=== PATIENT | female | born 1980 | race Caucasian/White ===

== ENCOUNTER 2020-06-02 06:58 | Outpatient (NON) | payer OTHER, SELFPAY ==
[2020-06-02 18:22] LABS: SARS-CoV-2 RNA PCR Negative
== END 2020-06-02 06:59 ==
PROVIDERS: PCP Family Medicine; Visit Provider Family Medicine
DX: Z20.828 Contact with and (suspected) exposure to other viral communicable diseases (principal); R50.9 Fever, unspecified
CPT/HCPCS: 87635; C9803; U0003

== ENCOUNTER → 2020-06-23 17:54 | Outpatient (CLI) | payer OTHER, SELFPAY ==
--- NOTE | ~2020-06-23 | MM_ITS ---
EXAMINATION: MM screening clari BI w hoang HISTORY: Screening TECHNIQUE: Craniocaudal and mediolateral oblique 3-D tomosynthesis images were obtained and synthetic 2-D images were generated. CAD analysis was submitted and interpreted. COMPARISON: Comparison to multiple prior studies sequentially, with oldest reviewed study dated 12/2011. BREAST PARENCHYMAL COMPOSITION: The breasts are heterogeneously dense, which may obscure small masses . FINDINGS: There is no evidence of suspicious mass, calcification, or architectural distortion to sugg est malignancy in either breast. There has been no suspicious interval change. IMPRESSION: 1. No mammographic evidence of malignancy. 2. Recommend routine screening mammography in one year. BI-RADS Category 1: Negative Reviewed, dictated and finalized at location A. NETWORK ENGINEER
== END ==
PROVIDERS: PCP Family Medicine; Visit Provider Obstetrics & Gynecology Gynecology
DX: Z12.31 Encounter for screening mammogram for malignant neoplasm of breast (principal)
CPT/HCPCS: 77063; 77067

== ENCOUNTER 2020-07-04 10:10 | Observation (INO) | payer OTHER, SELFPAY ==
[2020-07-04] VITALS (9 sets, daily range): BP systolic 96–116; BP diastolic 52–77; PULSE 69–99; RESP 15–22; TEMP 36.5–36.7; O2SAT 98–100
--- NOTE | ~2020-07-04 | XR_ITS ---
EXAMINATION: XR abdomen/kub 1V INDICATION: Right ureteral stone TECHNIQUE: Supine views of the abdomen were obtained on 2 radiographs. COMPARISON: CT from today and KUB dated 10/22/2008 FINDINGS: There is a 4 mm stone projecting in the right pelvis at the expected location of the right distal ureteral stone described on CT. Multiple phleboliths are noted in the pelvis. A 3 mm stone is noted in the left kidney lower pole. A linear 2 mm stone is noted in the right kidney lower pole. The bowel gas pattern is normal. The visualized osseous structures are unremarkable. IMPRESSION: 1. 4 mm stone in the expected location of the right distal ureter. 2. Bilateral nephrolithiasis. Reviewed, dictated and finalized at location A. EDITOR
--- NOTE | ~2020-07-04 | XR_ITS ---
EXAMINATION: XR retrograde pyelogram RT EXAM DATE: 07/05/2020 13:56 INDICATION: Cystoscopy, right stone removal. TECHNIQUE: Fluoroscopy used during XR retrograde pyelogram RT performed by Dr. Pete Reyes MD . The DAP for this procedure was [id number] Cine run(s) available for review. FINDINGS: Right ureter was cannulated and injected. There are several filling defects identified, ga s bubbles and/or stones. Moderately dilated proximal and mid ureter and moderate right-sided caliecta sis, hydronephrosis. Correlate with procedure note. IMPRESSION: Fluoroscopy used during XR retrograde pyelogram RT. Reviewed, dictated and finalized at location A. SON ENGINEER
--- NOTE | ~2020-07-04 | CT_ITS ---
EXAMINATION: CT abdomen pelvis wo con DATE: 07/04/2020 10:55 INDICATION: Flank pain TECHNIQUE: Computed tomography (CT) of the abdomen and pelvis was performed without intravenous contr ast. Automated exposure control and iterative reconstruction technique were employed. The dose-length product was 221.64 mGy-cm. COMPARISON: 06/16/2019 FINDINGS: Calcified right middle lobe nodule along with a few scattered splenic calcific lesions consistent wit h old granulomatous disease. Visualized inferior heart is unremarkable. No pericardial or pleural eff usion. Liver, gallbladder, pancreas and bilateral adrenal glands are normal. Bilateral nephrolithiasi s with 3 mm nonobstructing stone at the lower pole of the right kidney and with a couple stones measu ring up to 2-3 mm the lower pole of the right kidney. There is mild right hydroureteronephrosis exten ding to a 4 x 2 x 3 mm distal right ureteral stone located approximately 3.5 cm above the level of th e ureterovesicular junction. No left-sided ureteral stones or hydronephrosis. Decompressed bladder, a nteverted uterus and right adnexa are unremarkable. 2.2 cm mixed fat and soft tissue density left ova laron dermoid. There are few scattered colonic diverticula without adjacent inflammatory change to sug gest diverticulitis. Small bowel and appendix are normal. No free intraperitoneal gas or fluid. No pa thologically enlarged abdominal or pelvic lymphadenopathy. Bones are unremarkable. IMPRESSION: 1. Bilateral nephrolithiasis with obstructing 4 x 2 x 3 mm distal right ureteral stone with mild righ t hydroureteronephrosis. 2. Interval increase in size of a now 2.1 cm left ovarian dermoid. Reviewed, dictated and finalized at location A. MOTIVE UPHOLSTERER IMPRESSION: 1. Bilateral nephrolithiasis with obstructing 4 x 2 x 3 mm distal right uretera l stone with mild right hydroureteronephrosis. 2. Interval increase in size of a now 2.1 cm left ovarian dermoid.
--- NOTE | ~2020-07-04 | XR_ITS ---
XR abdomen/kub 1V 07/05/2020 07:24 Indication: Right ureteral stone evaluation Procedure: KUB Comparison: 07/04/2020 Findings: Stable calcification in the right pelvis, suspicious for distal ureteral stone, unchanged. There are additional pelvic calcifications, likely phleboliths. Bowel gas pattern is nonobstructive. There is a left renal stone. There is a small bone island in the left L4 transverse process. Impression: 1: Stable small right pelvic calcification, likely distal ureteral stone. 2: Left nephrolithiasis. Reviewed, dictated and finalized at location A. OF SHANK CUTTER Impression: 1: Stable small right pelvic calcification, likely distal ureteral stone. 2: Left nephrolithiasis.
[2020-07-04] MEDS: KETOROLAC 30 MG/ML VIAL (*BKC) IV PUSH (10:37)
[2020-07-04] MEDS: ONDANSETRON INJ 4 MG/2 ML VIAL IV PUSH ×4 (10:37→22:04)
[2020-07-04] MEDS: SODIUM CHLORIDE 0.9% IV 1,000 ML 999 ML IV CONT ×2 (10:37→12:31)
[2020-07-04 10:40] LABS: Basophils Percent Auto 0.4 % (0.2-1.2); Eosinophils Absolute Auto 0.1 K/mm3 (0-0.3); Eosinophils Percent Auto 1.5 % (0-4.4); Hematocrit 41.3 % (37.0-47.0); Immature Granulocyte Absolute 0.01 K/mm3 (0.00-0.031); Immature Granulocyte Percent A 0.2 % (0-0.5); Lymphocytes Absolute Auto 1.73 K/mm3 (0.9-3.2); Lymphocytes Percent Auto 32.6 % (18.3-44.2); Mean Corpuscular HGB Conc 33.9 g/dl (32-36); Mean Corpuscular Hemoglobin 31.3 pg (26-34); Mean Corpuscular Volume 92.4 fl (80-100); Mean Platelet Volume 10.7 fl (7.4-10.4); Monocytes Absolute Auto 0.5 K/mm3 (0.1-0.6); Monocytes Percent Auto 8.9 % (2.6-8.5); Neutrophils Percent Auto 56.4 % (45.5-73.1); Platelet Count Result 296 k/mm3 (150-375); Red Blood Count 4.47 M/mm3 (4.2-5.4); Red Cell Distribution Width 11.9 % (11.5-14.5); White Blood Count 5.3 K/mm3 (4.5-10.0)
[2020-07-04 10:46] LABS: Add Urine Microscopic? YES; Appearance Urine Cloudy (Clear); Bacteria Urine Trace /hpf; Bilirubin Urine Negative (Negative); Blood Urine 2+ (Negative); Color Urine Yellow (Yellow); Glucose Urine UA Negative (Negative); Ketones Urine Negative (Negative); Leukocyte Esterase Ur Trace LEU/UL (Negative); Mucus Urine Heavy /lpf; Nitrate Urine Negative (Negative); Protein Urine 1+ mg/dL (Negative); RBC Urine 21-50 /hpf (0-2); Specific Grav Ur 1.024 (1.001-1.035); Squamous Epithelial Cell Urine Many /hpf (Few); Urobilinogen Urine Negative mg/dL (<2.0)
[2020-07-04 10:53] LABS: Alanine Aminotransferase 24 U/L (4-35); Albumin Level 4.3 g/dL (3.5-5.1); Alkaline Phosphatase 50 U/L (38-126); Anion Gap 6 mmol/L (8-16); Aspartate Amino Transferase 31 U/L (14-36); Bilirubin,Total 0.4 mg/dL (0.2-1.3); Blood Urea Nitrogen 11 mg/dL (7-17); Calcium 8.7 mg/dL (8.4-10.2); Carbon Dioxide 29 mmol/L (22-30); Chloride 103 mmol/L (98-107); Estimated CRCL calculation 67 ml/min; Estimated Glomerular Filt Rate > 60; Glucose 121 mg/dL (65-105); Lipase 51 U/L (23-300); Potassium 3.4 mmol/L (3.4-5.0); Sodium 138 mmol/L (137-145)
--- NOTE | 2020-07-04 10:57 | ED.ABDPAIN ---
HPI - Abdominal Pain General Chief Complaint: Abdominal Pain Stated Complaint: right flank pain Time Seen by Provider: 07/04/20 10:19 Source: patient Mode of arrival: ambulatory Limitations: no limitations History of Present Illness HPI narrative: Patient is a 39-year-old female who presents complaining of right flank pain and lower abdominal pain. Patient reports seeing PCP last week and started on Cipro for possible UTI or colitis. Patient reports awaking this a.m. with right flank pain of 8/10. Patient reports a history of kidney stones. Patient denies dysuria, reports frequency. Patient also reports feeling urges for frequent BMs. She denies nausea, vomiting or diarrhea. She denies fever or other complaints. MD elicited complaint: flank pain Related Data Allergies Allergy/AdvReac Type Severity Reaction Status Date / Time amitriptyline Allergy Unknown Nausea Verified 07/04/20 16:49 amoxicillin Allergy Unknown Nausea Verified 07/04/20 16:49 oseltamivir Allergy Unknown Nausea and Verified 07/04/20 16:49 Vomiting Sulfa (Sulfonamide Allergy Unknown destroys Verified 07/04/20 16:49 Antibiotics) wbc's Review of Systems Review of Systems: Narrative: CONSTITUTIONAL: Denies fever, chills, or sweats. EYES: Denies visual changes, redness, or discharge. ENT: Denies rhinorrhea, congestion, sore throat, or otalgia. CARDIOVASCULAR: Denies chest pain, palpitations, or edema. RESPIRATORY: Denies cough or dyspnea. GASTROINTESTINAL: Reports lower abdominal pain, denies nausea, vomiting, or diarrhea. GENITOURINARY: Denies dysuria or hematuria. Reports right flank pain SKIN: Denies rash or itching. MUSCULOSKELETAL: Denies back pain, joint pain, or myalgia. NEUROLOGIC: Denies headache, numbness, dizziness, or weakness. PSYCHIATRIC: Denies anxiety or depression. FORMERLY [facility] Past Medical History Medical History (Updated 07/04/20 @ 15:26 by Mikie Munoz MD) Anxiety GERD (gastroesophageal reflux disease) Recurrent kidney stones UTI (urinary tract infection) Surgical History Surgical History H/O breast surgery H/O inguinal hernia repair H/O: Family History Family History (Updated 07/04/20 @ 16:51 by Yovana Dobbs RN) Father Diabetes mellitus Heart disease Malignant neoplasm of prostate Social History Social History (Updated 07/04/20 @ 11:02 by MADISON Ramos) Smoking packs per day: 1 Smoking cigarettes per day: 20.0 Years smoked: 6 Smoking pack-years: 6.00 Smoking status: Former smoker Tobacco type: cigarettes Alcohol intake: never Substance use: never Substance use type: does not use Living arrangements: with family Gender identity (if verbalized by the patient): Female Spiritual care concerns: No Exam Narrative: Exam Narrative: GENERAL: Well-appearing, well-nourished, and in no acute distress. HEAD: Normocephalic, atraumatic. EYES: No redness or drainage. ENT: Mucous membranes pink and moist. CHEST: No respiratory distress. HEART: Regular rate and rhythm. GI: Soft, nontender without rebound, or guarding. No distention. MUSCULOSKELETAL: No bony tenderness. EXTREMITIES: Normal range of motion. SKIN: Warm, dry, no rash. NEURO: No focal deficits. Alert and oriented x3. Gait steady. PSYCH: Normal affect. No signs of depression or anxiety. Course Reevaluation(s) Reevaluation #1: Discussed patient with Dr. Munoz. Patient unable to manage pain at this time. Patient will be admitted for pain control and possible further intervention. Dr. Munoz aware and has seen patient in ED at this time. Vital Signs Vital signs: Vital Signs Temperature 36.6 C 07/04/20 10:16 Pulse Rate 96 07/04/20 10:16 Respiratory Rate 20 07/04/20 10:16 Blood Pressure 104/62 07/04/20 10:16 Pulse Oximetry 98 07/04/20 10:16 Temperature 36.5 C 07/04/20 17:00 Pulse Rate 69 07/04/20 17:00 Respiratory
[2020-07-04] MEDS: MORPHINE SULFATE (*CRX) 2 MG/ML INJ IV PUSH ×4 (13:15→22:07)
--- NOTE | 2020-07-04 15:21 | WPDURCON ---
Assessment and Plan Additional Plan Right distal ureter stone. I reviewed her scans. There is right hydronephrosis. The ureter is difficult to follow. She has no nausea, emesis, fevers, or chills. There is no evidence of infection. She has been reluctant to take pain medications. We discussed a pain plan. We will have her use tylenol every 6 hours as well as toradol. She will have oral narcotic pain medication as initial breakthrough pain management. She will have IV pain medication as the breakthrough pain medication. She has passed her prior stones spontaneously. We will also add tamsulosin. She will be kept NPO after midnight in case surgical intervention is needed. We discussed the intervention currently would be ureteroscopy with laser lithotripsy and stent placement. We discussed indications for placing a stent only. We discussed the option of ESWL, but she is not currently a candidate due to use of Toradol. We will obtain a KUB to check for stone location and assist with monitoring of stone passage if the pain improves bu the stone is not caught. CT scan FINDINGS per radiology report: Calcified right middle lobe nodule along with a few scattered splenic calcific lesions consistent with old granulomatous disease. Visualized inferior heart is unremarkable. No pericardial or pleural effusion. Liver, gallbladder, pancreas and bilateral adrenal glands are normal. Bilateral nephrolithiasis with 3 mm nonobstructing stone at the lower pole of the right kidney and with a couple stones measuring up to 2-3 mm the lower pole of the right kidney. There is mild right hydroureteronephrosis extending to a 4 x 2 x 3 mm distal right ureteral stone located approximately 3.5 cm above the level of the ureterovesicular junction. No left-sided ureteral stones or hydronephrosis. Decompressed bladder, anteverted uterus and right adnexa are unremarkable. 2.2 cm mixed fat and soft tissue density left ovarian dermoid. There are few scattered colonic diverticula without adjacent inflammatory change to suggest diverticulitis. Small bowel and appendix are normal. No free intraperitoneal gas or fluid. No pathologically enlarged abdominal or pelvic lymphadenopathy. Bones are unremarkable. Urology Consult Note HPI Date Seen: 07/04/20 Primary Care Provider: Conrad Jeffers MD Consult Narrative Narrative: Tri Noble is a 39 year old female with a right ureteral stone. Pain started last week. She was treated for a possible UTI, but her UC was normal per her report. The pain worsened, so she came to the ER. Her pain has not been controlled with Toradol and narcotic pain medications. She states her pain is bilateral with the pain worse on the right. It is abdominal currently, but was more flank pain earlier in the day. She has passed stones before, always on the left side. This is her first right sided stone. Review of Systems Review of Systems: All systems reviewed & are unremarkable except as noted in HPI and below PMFSH Past Medical History Medical History (Updated 07/04/20 @ 15:26 by Mikie Munoz MD) Anxiety GERD (gastroesophageal reflux disease) Recurrent kidney stones UTI (urinary tract infection) Surgical History Surgical History H/O breast surgery H/O inguinal hernia repair H/O: Family History Family History (Updated 07/04/20 @ 11:02 by MADISON Ramos) Other Cancer Diabetes mellitus Heart disease Social History Social History (Updated 07/04/20 @ 11:02 by MADISON Ramos) Smoking status: Former smoker Tobacco type: cigarettes Alcohol intake: never Substance use: never Living arrangements: with family Gender identity (if verbalized by the patient): Female Meds Home Medications and Allergies Home Medications Medication Instructions Recorded Confirmed Type ciprofloxacin HCl 500 mg tablet 500 mg PO Q12H #14 tablet 06/30/20 06/30/20 Rx hydrocodo
--- NOTE | 2020-07-04 16:43 | ADMGEN ---
This patient, Tri Noble, was admitted to Medical Room 258-01. Patient/family oriented to hospital policies and general routines including ID bracelet, bed and alarms, visiting hours, pain management, procedures, bathroom and other care routines, personal items, smoking policy, room service/diet, and visiting hours. Information on how to activate the Rapid Response Team has been discussed. Patient/Family are encouraged to report perceived risks to care and to ask questions if they do not understand what they are told or what they should do.
[2020-07-04] MEDS: SODIUM CHLORIDE 0.9% IV 1,000 ML 125 ML IV CONT (17:16)
[2020-07-04] MEDS: KETOROLAC 15 MG/ML VIAL (*BKC) IV PUSH (17:50)
[2020-07-04] MEDS: DEXTROSE 5%/LACTATED RINGERS 1,000 ML 75 ML IV CONT (17:53)
--- NOTE | 2020-07-04 18:02 | PC.NURSE ---
Clarified orders with Dr. Munoz via telephone. Per Dr. Munoz, current orders should be for tylenol PO 1G Q6H scheduled, Toradol 15mg IVP Q6H scheduled. Patient stating that when we start/give her IVF, it increases her pain to 10/10. Dr. Munoz notified and I received orders to decrease her IVF rate to 75 mls/hr. Patient crying at the bedside, 10/10 pain and nausea. Administered the ordered Q6H dose of Toradol and will monitor. Patient guarded and reluctant to try any stronger pain medications at this time.
[2020-07-04] MEDS: oxyCODONE HCL (*CRX) 5 MG TAB IR PO (18:54)
[2020-07-04] MEDS: ACETAMINOPHEN 500 MG TABLET 1000 MG PO (20:43)
[2020-07-05] MEDS: KETOROLAC 15 MG/ML VIAL (*BKC) IV PUSH (00:21)
[2020-07-05 06:00] VITALS: BP 101/58; PULSE 65; RESP 16; TEMP 36.8; O2SAT 100
[2020-07-05] MEDS: ACETAMINOPHEN 500 MG TABLET 1000 MG PO ×2 (06:19→11:34)
[2020-07-05] MEDS: DEXTROSE 5%/LACTATED RINGERS 1,000 ML 75 ML IV CONT (06:23)
--- NOTE | 2020-07-05 07:06 | WPDUROPN2 ---
Progress Note: A&P Assessment and Plan (1) Right ureteral stone: Code(s): N20.1 - Calculus of ureter Status: Acute Assessment and Plan: KUB for stone position. If stone hasn't passed, ureteroscopy with right ureteral stone extraction today. Subjective Subjective Date/Time Seen: 07/05/20 07:06 Sudden relief of right flank pain ~0100, now with minimal discomfort. Review of Systems Cardiovascular: Cardiovascular: Denies chest pain, Denies lightheadedness, Denies palpitations and Denies dyspnea Respiratory: Respiratory: Denies dyspnea Gastrointestinal: Gastrointestinal: Denies diarrhea, Denies nausea and Denies vomiting Genitourinary: Genitourinary: Denies hematuria and Denies dysuria Endocrine: Endocrine: Denies palpitations Exam Const: General: no acute distress Resp: Effort & Inspection: normal respiratory effort GI: Inspection: non-distended GI Palp: No abdominal tenderness and No Guarding due to palpation present (GI) Auscultation: normal bowel sounds Objective Data Vital Signs Vital Signs: Vital Signs - 24 hr 07/04/20 10:16 07/04/20 11:23 07/04/20 13:15 Temperature 97.8 F Pulse Rate 96 75 99 Respiratory Rate 20 15 22 H Blood Pressure 104/62 100/54 L 116/77 Pulse Oximetry 98 100 100 07/04/20 14:05 07/04/20 15:05 07/04/20 16:28 Temperature Pulse Rate 87 72 82 Respiratory Rate 17 19 21 H Blood Pressure 107/59 L 96/52 L 98/63 L Pulse Oximetry 99 99 100 07/04/20 17:00 07/04/20 20:00 07/04/20 22:00 Temperature 97.7 F 98.0 F Pulse Rate 69 69 74 Respiratory Rate 18 18 18 Blood Pressure 101/57 L 108/63 Pulse Oximetry 100 100 100 07/05/20 06:00 Temperature 98.3 F Pulse Rate 65 Respiratory Rate 16 Blood Pressure 101/58 L Pulse Oximetry 100 Intake/Output Intake/Output: Intake & Output 07/02/20 07/03/20 07/04/20 07/05/20 23:59 23:59 23:59 23:59 Intake Total 2120 1450 Output Total 1100 Balance 2120 350 Meds/Results Medications: Active Medications Generic Name Dose Route Start Last Admin Trade Name Freq PRN Reason Stop Dose Admin Acetaminophen 1,000 mg 07/04/20 21:00 07/05/20 06:19 Acetaminophen 500 Mg Tablet PO 1,000 mg Q6H BEATRICE Administration Docusate Sodium 100 mg 07/04/20 17:00 07/04/20 17:17 Docusate Sodium 100 Mg Capsule PO Not Given BID BEATRICE Dextrose/Lactated Ringer's 1,000 mls @ 75 mls/hr 07/04/20 15:40 07/05/20 06:23 Dextrose 5%/Lactated Ringers IV CONT 75 mls/hr .[id number] BEATRICE Administration Ketorolac Tromethamine 15 mg 07/04/20 18:00 07/05/20 06:19 Ketorolac 15 Mg/Ml Vial (*Bkc) IV PUSH Not Given Q6HR [facility] Morphine Sulfate 2 mg 07/04/20 15:38 07/04/20 22:07 Morphine Sulfate (*Crx) 2 Mg/Ml Inj IV PUSH 2 mg Q2H PRN Administration Pain Rated 7-10 Naloxone HCl 0.1 mg 07/04/20 15:38 Naloxone Hcl 0.4 Mg/Ml Vial IV PUSH Q2M PRN Opiate Reversal Ondansetron HCl 4 mg 07/04/20 17:38 07/04/20 22:04 Ondansetron Inj 4 Mg/2 Ml Vial IV PUSH 4 mg Q4HR PRN Administration Nausea And Vomiting Oxycodone HCl 5 mg 07/04/20 15:43 07/04/20 18:54 Oxycodone Hcl (*Crx) 5 Mg Tab Ir PO 5 mg Q4H PRN Administration Pain Rated 7-10 Radiology Results: ITS Impressions Abdomen/Pelvis CT 07/04/20 11:02 IMPRESSION: 1. Bilateral nephrolithiasis with obstructing 4 x 2 x 3 mm distal right ureteral stone with mild right hydroureteronephrosis. 2. Interval increase in size of a now 2.1 cm left ovarian dermoid. Abdomen X-Ray 07/04/20 16:10 IMPRESSION: 1. 4 mm stone in the expected location of the right distal ureter. 2. Bilateral nephrolithiasis. Labs Labs: Laboratory Results - last 24 hr 07/04/20 07/04/20 07/04/20 10:24 10:25 10:25 WBC 5.3 RBC 4.47 Hgb 14.0 Hct 41.3 MCV 92.4 MCH 31.3 MCHC 33.9 RDW 11.9 Plt Count 296 MPV 10.7 H Immature Gran % (Auto) 0.2 Neut % (Auto) 56.4 Lymph
--- NOTE | 2020-07-05 07:35 | WPDUROPN2 ---
Progress Note: A&P Assessment and Plan (1) Right ureteral stone: Code(s): N20.1 - Calculus of ureter Status: Acute (2) Hydronephrosis: Code(s): N13.30 - Unspecified hydronephrosis Status: Acute Additional Plan plan for Right ureteroscopy, stone extraction, possible stent Subjective Subjective Date/Time Seen: 07/05/20 07:35 was in significant pain last night. Stone has not moved on KUB. No COVID symptoms Exam Const: General: cooperative and healthy appearing HENMT: Head: normal to inspection Eyes: General: appearance normal, both eyes and all related structures Neck: Neck: normal visual inspection Resp: Effort & Inspection: normal respiratory effort and able to speak in complete sentences Back/Spine/Pelvis: Back: CVA tenderness (right) Skin: General skin exam: normal color Neuro: General: patient oriented x3 Objective Data Vital Signs Vital Signs: Vital Signs - 24 hr 07/04/20 10:16 07/04/20 11:23 07/04/20 13:15 Temperature 97.8 F Pulse Rate 96 75 99 Respiratory Rate 20 15 22 H Blood Pressure 104/62 100/54 L 116/77 Pulse Oximetry 98 100 100 07/04/20 14:05 07/04/20 15:05 07/04/20 16:28 Temperature Pulse Rate 87 72 82 Respiratory Rate 17 19 21 H Blood Pressure 107/59 L 96/52 L 98/63 L Pulse Oximetry 99 99 100 07/04/20 17:00 07/04/20 20:00 07/04/20 22:00 Temperature 97.7 F 98.0 F Pulse Rate 69 69 74 Respiratory Rate 18 18 18 Blood Pressure 101/57 L 108/63 Pulse Oximetry 100 100 100 07/05/20 06:00 Temperature 98.3 F Pulse Rate 65 Respiratory Rate 16 Blood Pressure 101/58 L Pulse Oximetry 100 Intake/Output Intake/Output: Intake & Output 07/02/20 07/03/20 07/04/20 07/05/20 23:59 23:59 23:59 23:59 Intake Total 2120 1450 Output Total 1100 Balance 2120 350 Meds/Results Medications: Active Medications Generic Name Dose Route Start Last Admin Trade Name Freq PRN Reason Stop Dose Admin Acetaminophen 1,000 mg 07/04/20 21:00 01/04/21 06:19 Acetaminophen 500 Mg Tablet PO 1,000 mg Q6H BEATRICE Administration Docusate Sodium 100 mg 07/04/20 17:00 07/04/20 17:17 Docusate Sodium 100 Mg Capsule PO Not Given BID BEATRICE Dextrose/Lactated Ringer's 1,000 mls @ 75 mls/hr 07/04/20 15:40 07/05/20 06:23 Dextrose 5%/Lactated Ringers IV CONT 75 mls/hr .[id number] BEATRICE Administration Ketorolac Tromethamine 15 mg 07/04/20 18:00 07/05/20 06:19 Ketorolac 15 Mg/Ml Vial (*Bkc) IV PUSH Not Given Q6HR BEATRICE Morphine Sulfate 2 mg 07/04/20 15:38 07/04/20 22:07 Morphine Sulfate (*Crx) 2 Mg/Ml Inj IV PUSH 2 mg Q2H PRN Administration Pain Rated 7-10 Naloxone HCl 0.1 mg 07/04/20 15:38 Naloxone Hcl 0.4 Mg/Ml Vial IV PUSH Q2M PRN Opiate Reversal Ondansetron HCl 4 mg 07/04/20 17:38 07/04/20 22:04 Ondansetron Inj 4 Mg/2 Ml Vial IV PUSH 4 mg Q4HR PRN Administration Nausea And Vomiting Oxycodone HCl 5 mg 07/04/20 15:43 07/04/20 18:54 Oxycodone Hcl (*Crx) 5 Mg Tab Ir PO 5 mg Q4H PRN Administration Pain Rated 7-10 Radiology Results: ITS Impressions Abdomen/Pelvis CT 07/04/20 11:02 IMPRESSION: 1. Bilateral nephrolithiasis with obstructing 4 x 2 x 3 mm distal right ureteral stone with mild right hydroureteronephrosis. 2. Interval increase in size of a now 2.1 cm left ovarian dermoid. Labs Labs: Laboratory Results - last 24 hr 07/04/20 07/04/20 07/04/20 10:24 10:25 10:25 WBC 5.3 RBC 4.47 Hgb 14.0 Hct 41.3 MCV 92.4 MCH 31.3 MCHC 33.9 RDW 11.9 Plt Count 296 MPV 10.7 H Immature Gran % (Auto) 0.2 Neut % (Auto) 56.4 Lymph % (Auto) 32.6 [place] % (Auto) 8.9 H Eos % (Auto) 1.5 Baso % (Auto) 0.4 Lymph # (Auto) 1.73 [place] # (Auto) 0.5 Eos # (Auto) 0.1 Baso # (Auto) 0.0 Abs Immat Gran (auto) 0.01 Absolute Neuts (auto) 3.0 Absolute Nucleated RBC 0.0 Nucleated RBC % 0.0 Sodium
[2020-07-05 09:32] LABS: Hematocrit 32.2 % (37.0-47.0); Hemoglobin 10.8 g/dL (12.0-15.0)
[2020-07-05 09:48] LABS: Anion Gap 4 mmol/L (8-16); Blood Urea Nitrogen 12 mg/dL (7-17); Calcium 8.4 mg/dL (8.4-10.2); Carbon Dioxide 29 mmol/L (22-30); Chloride 107 mmol/L (98-107); Estimated CRCL calculation 54 ml/min; Estimated Glomerular Filt Rate > 60; Glucose 98 mg/dL (65-105); Potassium 4.1 mmol/L (3.4-5.0); Sodium 140 mmol/L (137-145)
[2020-07-05 12:07] VITALS: BP 102/61; PULSE 69; RESP 16; TEMP 37; O2SAT 100
--- NOTE | 2020-07-05 12:42 | WPDANESEPPF ---
Anes - Initial Pre Proc Eval Procedure: Operation Date: 07/05/20 14:30 Proposed Procedures p CYSTOSCOPY,RIGHT URETEROSCOPY,STONE EXTRACTION - Pete Reyes MD Date/Time: 07/05/20 12:42 Surgeon: Mikie Munoz MD Pre Op Diagnosis: Right ureter stone Patient Data Age: 39 Gender: F Height: 5 ft 3 in Weight: 59 kg Last Vital Signs Temp 98.6 F 07/05/20 12:07 Pulse 69 07/05/20 12:07 Resp 16 07/05/20 12:07 BP 102/61 07/05/20 12:07 Pulse Ox 100 07/05/20 12:07 Allergies Allergy/AdvReac Type Severity Reaction Status Date / Time amitriptyline Allergy Unknown Nausea Verified 07/04/20 16:49 amoxicillin Allergy Unknown Nausea Verified 07/04/20 16:49 oseltamivir Allergy Unknown Nausea and Verified 07/04/20 16:49 Vomiting Sulfa (Sulfonamide Allergy Unknown destroys Verified 07/04/20 16:49 Antibiotics) wbc's Home Medications Medication Instructions Recorded Confirmed Type ciprofloxacin HCl 500 mg tablet 500 mg PO Q12H #14 tablet 06/30/20 07/04/20 Rx hydrocodone-acetaminophen [[place]] 1 tablet PO Q6H PRN #10 tablet 07/04/20 Rx ibuprofen 800 mg PO TID PRN #20 tablet 07/04/20 Rx ondansetron HCl 4 mg PO Q6H PRN #20 tablet 07/04/20 Rx Laboratory Tests 07/05/20 07/05/20 09:22 09:22 Hgb 10.8 g/dL L D g/dL (12.0-15.0) Hct 32.2 % L % (37.0-47.0) Sodium 140 mmol/L mmol/L (137-145) Potassium 4.1 mmol/L mmol/L (3.4-5.0) Chloride 107 mmol/L mmol/L (98-107) Carbon Dioxide 29 mmol/L mmol/L (22-30) Anion Gap 4 mmol/L L mmol/L (8-16) BUN 12 mg/dL mg/dL (7-17) Creatinine 1.00 mg/dL mg/dL (0.7-1.0) Estim Creat Clear Calc 54 ml/min ml/min Estimated GFR > 60 (59 - ) Glucose 98 mg/dL mg/dL (65-105) Calcium 8.4 mg/dL mg/dL (8.4-10.2) Patient hx anesthesia problems: none Family hx anesthesia problems: none [facility] Past Medical History Medical History (Updated 07/05/20 @ 07:37 by Pete Reyes MD) Anxiety GERD (gastroesophageal reflux disease) Recurrent kidney stones UTI (urinary tract infection) Surgical History Surgical History H/O breast surgery H/O inguinal hernia repair H/O: Family History Family History (Updated 07/04/20 @ 16:51 by Yovana Dobbs RN) Father Diabetes mellitus Heart disease Malignant neoplasm of prostate Social History Social History (Updated 07/04/20 @ 11:02 by MADISON aRmos) Smoking packs per day: 1 Smoking cigarettes per day: 20.0 Years smoked: 6 Smoking pack-years: 6.00 Smoking status: Former smoker Tobacco type: cigarettes Alcohol intake: never Substance use: never Substance use type: does not use Living arrangements: with family Gender identity (if verbalized by the patient): Female Spiritual care concerns: No Anes - Eval Final PreProcedure Day of Procedure 07/05/20 12:42 Patient weight: normal Heart: regular rate and rhythm Lungs: clear to auscultation Airway: Mallampati scale class II Neurological: alert and oriented Last oral intake: >/= 8 hours ASA classification: II Emergent: no Anesthetic plan: proceed Anesthesia type and monitoring: general LMA and standard monitoring Informed Consent: The patient's anesthetic plan and its attendant risks and benefits were discussed with the patient/family/POA. Questions were solicited and answers provided to the satisfaction of the patient/family/POA.
[2020-07-05] MEDS: LACTATED RINGERS 1,000 ML 30 ML IV CONT (12:45)
[2020-07-05] MEDS: levoFLOXacin 250 MG/D5W 50 ML 250 MG/50 ML BAG 50 MG IVPB (13:30)
[2020-07-05] MEDS: LIDOCAINE HCL 2% GEL UROJET 10 ML PKG MUCOUS MEM (13:36)
--- NOTE | 2020-07-05 13:58 | PM.PROC ---
Procedure Note - Detailed Date of procedure: 07/05/20 Pre-op diagnosis: Right ureter stone Post-op diagnosis: same Procedure performed: Cystoscopy, right retrograde pyelogram, right ureteroscopy with stone extraction Description of procedure: She was correctly identified and informed consent obtained. She is probably operating room. She was given general anesthesia. She was prepped and draped in the dorsal lithotomy position. She was given appropriate perioperative antibiotics. Time-out performed. I performed cystoscopy. The bladder is examined and was normal. I did a gentle retrograde pyelogram on the right. It outlined the distal ureteral stone with proximal hydronephrosis. I dilated the ureter with the 8/10 dilator. I performed ureteroscopy. The stone was encountered. I grasped the stone and removed it intact. I re-examined the ureter. There is no additional stones. There was minimal to no trauma to the ureter. I elected to not leave ureteral stent. She is awakened and transferred to the PACU in stable condition. Anesthesia: GLMA Surgeon: Pete Reyes MD Estimated blood loss (mL): 0 Drains: No Packing: No Pathology: yes (Stone) Complications: No immediate complications Condition: stable Disposition: PACU
[2020-07-05 14:03] VITALS: BP 96/59; PULSE 75; RESP 13; TEMP 36.2; O2SAT 95
--- NOTE | 2020-07-05 14:04 | P.DS_ITS ---
DS: Admitting Diagnosis Admitting Diagnosis Admitting Diagnosis: Right ureteral stone DS: Discharge Diagnosis Discharge Diagnosis (1) Right ureteral stone: Code(s): N20.1 - Calculus of ureter Status: Acute DS: Summary Hospital Course Hospital Course: She was admitted to the hospital ureteral stone. She failed a trial of conservative stone passage. She had significant pain overnight. The next day she was taken to the operating room for definitive stone management and stone removal via ureteroscopy Time Spent with Patient Time attestation: Total time spent providing and/or coordinating discharge se rvices: 15 minutes She was admitted with a ureteral stone. She had significant pain overnight and failed a trial of conservative stone passage. The next day she was taken the operating room for definitive stone surgery. We performed ureteroscopy and extracted the stone intact. No stent was left. Should be discharged home in stable condition Exam Const: General: cooperative and healthy appearing HENMT: Ears: hearing grossly normal bilaterally Eyes: General: appearance normal, both eyes and all related structures Resp: Effort & Inspection: normal respiratory effort and able to speak in complete sentences Skin: General skin exam: normal color Neuro: General: oriented to person, oriented to place and oriented to time DS: Data Data Completed and Pending Pending studies at discharge: Pending at discharge 07/05/20 13:51 Surgical [PTH] Routine Labs on day of discharge: Labs from last 24 hours 07/05/20 07/05/20 09:22 09:22 Hgb 10.8 L D Hct 32.2 L Sodium 140 Potassium 4.1 Chloride 107 Carbon Dioxide 29 Anion Gap 4 L BUN 12 Creatinine 1.00 Estim Creat Clear Calc 54 Estimated GFR > 60 Glucose 98 Calcium 8.4 Discharge Plan Discharge Attending physician on discharge: Mikie Munoz Discharging Clinician: Pete Reyes Anticipated Discharge Date/Time: 07/05/20 14:01 Patient Disposition: Home, Self-Care Activity: may shower and unlimited Diet: as tolerated Patient Instructions: Antibiotic Form Stand Alone Forms: General Discharge Information Follow-up/Referrals: Conrad Jeffers MD [Primary Care Provider] - (f/u Dr Pete Reyes in 3 months [phone]) Discharge Medications: New ondansetron HCl 4 mg tablet 4 mg PO Q6H PRN (Reason: nausea and vomiting) Qty: 20 RF: 0 hydrocodone-acetaminophen [[place]] 5-325 mg tablet 1 tablet PO Q6H PRN (Reason: pain) Qty: 10 RF: 0 hydrocodone-acetaminophen [[place]] 5-325 mg tablet 1 tablet PO Q4H PRN (Reason: pain) Qty: 20 RF: 0 ciprofloxacin HCl 500 mg tablet 500 mg PO Q12H Qty: 6 RF: 0 Continued ciprofloxacin HCl [Cipro] 500 mg tablet 500 mg PO Q12H Qty: 14 RF: 0 Date of admission: 07/04/20 14:39 Primary Care Provider: Conrad Jeffers Admitting Provider: Mikie Munoz Attending physician on admission: Mikie Munoz Condition: Stable
[2020-07-05 14:15] VITALS: BP 100/69; PULSE 68; RESP 13; O2SAT 100
[2020-07-05 14:30] VITALS: BP 101/68; PULSE 67; RESP 15; O2SAT 95
[2020-07-05 14:43] VITALS: BP 100/73; PULSE 68; RESP 15; O2SAT 95
== END 2020-07-05 15:15 | disposition home or self-care (01) ==
LOC: ANHED 14:21 → ANH2MED 07-05 07:37
PROVIDERS: Emergency Medicine; Admitting Provider Urology; Emergency Provider Nurse Practitioner; PCP Family Medicine; Visit Provider Urology
PROC: (CPT 52352; principal; 2020-07-05 14:30)
DX: N13.2 Hydronephrosis with renal and ureteral calculous obstruction (principal); K21.9 Gastro-esophageal reflux disease without esophagitis; F41.9 Anxiety disorder, unspecified; Z87.891 Personal history of nicotine dependence
CPT/HCPCS: 52352; 36415; 74018; 74176; 74420; 80048; 80053; 81001; 81025; 82365; 83690; 85014; 85018; 85025; 87086; 88300; 96361; 96374; 96375; 96376; 99285; A9270; C1769; G0378; J0131; J1100; J1885; J1956; J2250; J2270; J2405; J2704; J3010; J7030; J7120; J7121

== ENCOUNTER → 2020-11-10 08:54 | Outpatient (CLI) | payer OTHER, SELFPAY ==
--- NOTE | ~2020-11-10 | MMUS_ITS ---
EXAMINATION: MM diagnostic clari RT w hoang, US breast RT limited HISTORY: Deformity and loss of soft tissue density in the upper inner quadrant of the right breast TECHNIQUE: Craniocaudal, mediolateral, and mediolateral oblique 3-D tomosynthesis images of the right breast were performed and synthetic 2-D images were generated. CAD analysis was submitted and interp reted. High resolution limited right breast ultrasound was performed. COMPARISON: 06/03/2020, 06/06/2019, 06/06/2012 BREAST PARENCHYMAL COMPOSITION: There are scattered areas of fibroglandular density. FINDINGS: MAMMOGRAPHIC FINDINGS: There is no evidence of suspicious mass, calcification, or architectural distortion right malignancy . There has been no suspicious interval change. No mammographic correlate is identified for the repor francisco javier deformity and loss of breast tissue density. ULTRASOUND: There is no evidence of focal abnormal solid or cystic mass in the vicinity of the right breast defor mity and loss of tissue density. IMPRESSION: 1. No specific mammographic or sonographic correlate is identified for the right breast deformity and loss of tissue density. Further evaluation at this time should be based on clinical assessment. Cont inued follow-up physical examination is recommended. 2. Routine annual screening mammography is recommended. BI-RADS Category 1: Negative Reviewed, dictated and finalized at location A. IMPRESSION: 1. No specific mammographic or sonographic correlate is identified for the righ t breast deformity and loss of tissue density. Further evaluation at this time should be based on clinical assessment. Continued follow-up physical examinatio n is recommended. 2. Routine annual screening mammography is recommended. BI-RADS Category 1: Negative
== END ==
PROVIDERS: Visit Provider Nurse Practitioner
DX: N63.15 Unspecified lump in the right breast, overlapping quadrants (principal)
CPT/HCPCS: 76642; 77061; 77065; G0279

== ENCOUNTER → 2021-08-25 10:20 | Outpatient (CLI) | payer OTHER, SELFPAY ==
--- NOTE | ~2021-08-25 | MM_ITS ---
EXAMINATION: MM screening clari BI w hoang HISTORY: Screening mammogram TECHNIQUE: Craniocaudal and mediolateral oblique 3-D tomosynthesis images were obtained and synthetic 2-D images were generated. CAD analysis was submitted and interpreted. COMPARISON: 11/10/2020 diagnostic right mammogram and limited right breast ultrasound examination 06/23/2020, 06/06/2019 bilateral screening mammogram examinations BREAST PARENCHYMAL COMPOSITION: There are scattered areas of fibroglandular density. No other urinary FINDINGS: There is a 5.6 x 9 mm opacity in the anterior upper mid right breast; diagnostic right mamm ogram and right breast ultrasound examination are recommended. There is no evidence of suspicious mass, calcification, or architectural distortion to suggest malign camille in either breast. There has been no other suspicious interval change. IMPRESSION: 1. 5.6 x 9 mm opacity in the upper mid anterior right breast 2. Recommend routine screening mammography in one year. BI-RADS Category 0: Incomplete: Needs additional imaging evaluation. Reviewed, dictated and finalized at location A. SLIDE OPERATOR
== END ==
PROVIDERS: Visit Provider Obstetrics & Gynecology Gynecology
DX: Z12.31 Encounter for screening mammogram for malignant neoplasm of breast (principal); R92.8 Other abnormal and inconclusive findings on diagnostic imaging of breast
CPT/HCPCS: 77063; 77067

== ENCOUNTER → 2021-09-07 08:06 | Outpatient (CLI) | payer OTHER, SELFPAY ==
--- NOTE | ~2021-09-07 | MMUS_ITS ---
EXAMINATION: MM diagnostic clari RT w hoang, US breast RT complete HISTORY: Follow-up right breast asymmetry TECHNIQUE: Additional 3-D tomosynthesis images of the right breast were performed and synthetic 2-D i mages were generated. CAD analysis was submitted and interpreted. High resolution complete right hieu st ultrasound was performed. COMPARISON: Comparison to multiple prior studies sequentially, with oldest reviewed study dated 12/2011. BREAST PARENCHYMAL COMPOSITION: The breasts are heterogenously dense, which may obscure small masses FINDINGS: MAMMOGRAPHIC FINDINGS: There are no suspicious masses, calcifications or architectural distortion in the right breast. ULTRASOUND: Complete US of all 4 quadrants of the right breast and retroareolar region was reviewed. Multiple sma ll simple and complicated cysts. At 10:00, 7.5 cm from the nipple there is a intramammary lymph node measuring 7 mm. No suspicious masses to suggest malignancy. IMPRESSION: 1. No evidence for malignancy in the right breast. 2. Routine yearly screening mammogram and regular clinical breast examination are recommended. BI-RADS Category 2: Benign finding(s). Reviewed, dictated and finalized at location A. RAM DIRECTOR/MORNING SHOW HOST IMPRESSION: 1. No evidence for malignancy in the right breast. 2. Routine yearly screening mammogram and regular clinical breast examination a re recommended. BI-RADS Category 2: Benign finding(s).
== END ==
PROVIDERS: Visit Provider Obstetrics & Gynecology Gynecology
DX: R92.8 Other abnormal and inconclusive findings on diagnostic imaging of breast (principal)
CPT/HCPCS: 76641; 77061; 77065; G0279

== ENCOUNTER → 2022-07-13 09:22 | Outpatient (CLI) | payer OTHER, SELFPAY ==
--- NOTE | ~2022-07-13 | US_ITS ---
EXAMINATION: US retroperitoneal comp DATE: 07/13/2022 09:41 INDICATION: Bilateral kidney stones TECHNIQUE: Multiple grayscale and Doppler ultrasound images of the kidneys were obtained. COMPARISON: 07/11/2019 FINDINGS: The right kidney measures 11.3 x 5.1 x 6.1 cm. The left kidney measures 10.8 x 5.5 x 4.8 cm . The kidneys demonstrate normal parenchymal echogenicity. No urolithiasis is identified. There is no hydronephrosis. The bladder is normal. Incidental note is made of an 8.2 x 4.5 x 6.9 cm right adnexa l cyst. IMPRESSION: 1. Normal kidneys without hydronephrosis. 2. Incidentally noted right adnexal cyst measuring up to 8.2 cm. Dedicated pelvic ultrasound is recom mended. Reviewed, dictated and finalized at location L. ERIOLOGIST PHARMACEUTICAL IMPRESSION: 1. Normal kidneys without hydronephrosis. 2. Incidentally noted right adnexal cyst measuring up to 8.2 cm. Dedicated pelv ic ultrasound is recommended.
--- NOTE | ~2022-07-13 | XR_ITS ---
EXAMINATION: XR abdomen/kub 1V INDICATION: Bilateral kidney stones TECHNIQUE: Supine view of the abdomen is obtained. COMPARISON: 07/05/2020 FINDINGS: There is a punctate 1 mm stone of the left mid kidney. No additional urolithiasis is identi fied. There are phleboliths of the pelvis. There is a chronic density projecting at the tip of the le ft L4 transverse process. The bowel gas pattern is normal. There is a moderate volume of colonic stoo l. IMPRESSION: 1. 1 mm stone of the left mid kidney. Reviewed, dictated and finalized at location L. ERCIAL AIRLINE PILOT
== END ==
PROVIDERS: PCP Urology; Visit Provider Urology
DX: N20.0 Calculus of kidney (principal)
CPT/HCPCS: 74018; 76770

== ENCOUNTER → 2022-08-17 10:17 | Outpatient (CLI) | payer OTHER, SELFPAY ==
--- NOTE | ~2022-08-17 | US_ITS ---
EXAMINATION: US pelvic complete w TV DATE: 08/17/2022 10:55 INDICATION: Pelvic swelling. Comparison:Ultrasound dated 10/25/2004 TECHNIQUE: Multiple transabdominal and endovaginal sonographic images of the pelvis performed. FINDINGS: The uterus measures 10.8 x 5.5 x 6.3 cm. The endometrial complex measures 1.3 cm. The right ovary measures 4.3 x 2.6 x 4.5 cm and the left ovary measures 2.3 x 1.9 x 2.9 cm. There ar e small follicles in each ovary. Normal doppler signal in both ovaries. There are follicular changes in the right ovary. In the left adnexa there is a heterogeneous solid-appearing mass with enhanced th rough transmission and echogenic periphery measuring 2.7 x 2.5 x 2.4 cm. There is no free fluid in the pelvis. There are no abnormal masses seen on either side. IMPRESSION: 1. Heterogeneous solid appearing left adnexal mass measuring up to 2.7 cm. Differential diagnosis inc ludes endometrioma, dermoid, complex exophytic ovarian mass such as ovarian cystadenocarcinoma. Recom mend correlation with contrast-enhanced CT abdomen and pelvis. 2: Endometrial thickening measuring 1.3 cm. Reviewed, dictated and finalized at location A. RACTIVE WEB DEVELOPER IMPRESSION: 1. Heterogeneous solid appearing left adnexal mass measuring up to 2.7 cm. Diff erential diagnosis includes endometrioma, dermoid, complex exophytic ovarian ma ss such as ovarian cystadenocarcinoma. Recommend correlation with contrast-enha nced CT abdomen and pelvis. 2: Endometrial thickening measuring 1.3 cm.
== END ==
PROVIDERS: PCP Obstetrics & Gynecology Gynecology; Visit Provider Obstetrics & Gynecology Gynecology
DX: R19.00 Intra-abdominal and pelvic swelling, mass and lump, unspecified site (principal); R93.89 Abnormal findings on diagnostic imaging of other specified body structures
CPT/HCPCS: 76830; 76856

== ENCOUNTER 2022-09-04 00:09 | Day surgery (SDC) | payer OTHER, SELFPAY ==
[2022-08-29 09:43] VITALS: BMI 24.7
--- NOTE | 2022-08-29 09:48 | PC.NURSE ---
Report to the Outpatient Waiting Room, entrance under the green pavilion located off [facility], at time 0630 on date 09/04/22. Planned Procedure Time: 0830. Time changes happen often and if your time is changed the preop area will call you the afternoon before. - You and your visitor will be asked to self-screen and do not enter if you have any COVID symptoms. - Only one visitor is requested with a max of two and NO children visitors are allowed at this time. - The patient visitor may be requested to leave or wait in car when not with patient due to distancing restrictions. - A mask is optional within the hospital at this time. Patients may have clear liquids (water, carbonated beverages, clear teas, apple juice) until 3 hours prior to surgery with a maximum of 20 ounces. - No food from midnight until time of surgery Take the following medications with a SIP of water the morning of surgery: N/A DO NOT STOP ANY OF YOUR OTHER PRESCRIPTION MEDICATIONS PRIOR TO SURGERY EXCEPT THE FOLLOWING Medications to discontinue per physician: N/A Date to take last dose: N/A Please no make-up, nail kyrgyz, hairspray, perfume, deodorant, or body powder the day of surgery. No jewelry (including any body piercings) or valuables the day of surgery, leave them at home. Please take a shower or bath the night before, or the morning of, surgery with an antibacterial soap. Wear comfortable, loose fitting clothing. - Jewelry must be removed prior to entering the operating room. Rings and piercings that are not removed may be cut off. - The hospital will not accept responsibility for valuables. - Please leave all valuables, including medications, at home the day of surgery. If you are going home after surgery, a licensed truck driver heavy must drive you home. - NO public transportation without another adult if you receive anesthesia. - We recommend that an adult stay with you for 24 hours following discharge. - We also recommend that you do not drive, make important decision, drink alcoholic beverages, or take any drugs that were not prescribed by your health care provider for at least 24 hours after your discharge time. Follow any additional instructions given to you from your surgeon. If you or anyone in your household have experienced Covid symptoms in the past week, please notify your surgeon or the nurse liaison at the phone number below for possible testing. Telephone instructions given to PT - FAMILIA FIGUEROA and asked if any additional questions and then verbalized understanding. Patient advised to call surgeon office or pre surgery nurse liaison [phone] if any additional questions.
[2022-09-04] MEDS: ACETAMINOPHEN 500 MG TABLET 1000 MG PO (06:15)
[2022-09-04 06:23] VITALS: BP 105/72; PULSE 70; RESP 16; TEMP 36.5; O2SAT 100
[2022-09-04] MEDS: LACTATED RINGERS 1,000 ML 30 ML IV CONT (06:35)
--- NOTE | 2022-09-04 07:00 | WPDHPUPDATE1 ---
History and Physical Update Update Date/Time: 09/04/22 07:00 History and Physical has been reviewed, including an updated exam of the patient. There are NO changes in the patient's condition. Risks, benefits, and alternatives have been discussed and questions answered. Patient agrees to proceed with procedure.
--- NOTE | 2022-09-04 07:00 | PM.HPGS ---
History of Present Illness History of Present Illness Consent: Risks, benefits, and alternatives have been discussed and questions answered. Patient agrees to proceed with procedure. Chief complaint: menorrhagia Narrative: Tri Noble is a 42 year old female with heavy cycles and a thickened endometrium. Patient finished her cycle on August 15 and on August 17 the endometrium was measuring 13mm. It was recommended to proceed with D&C hysteroscopy.Risks of infection, bleeding, and perforation are reviewed. Possible pathology is also discussed. Patient voices understanding and agrees to proceed. Review of Systems Review of Systems: not repeated day of surgery; patient states no changes in status [facility] Past Medical History Medical History (Updated 09/04/22 @ 07:07 by Yvonne Clarke MD) Anxiety Forceps delivery 2009 GERD (gastroesophageal reflux disease) History of hypothyroidism (normal spontaneous vaginal delivery) 2007 Recurrent kidney stones Surgical History Surgical History (Updated 09/04/22 @ 07:05 by Yvonne Clarke MD) H/O breast surgery Removal of axillary breast tissue H/O inguinal hernia repair H/O: 2004 Family History Family History Father Diabetes mellitus Heart disease Malignant neoplasm of prostate Social History Social History (Updated 08/23/22 @ 08:40 by Michelle Morris) Social History: caffeine-daily Smoking packs per day: 1 Smoking cigarettes per day: 20.0 Years smoked: 6 Smoking pack-years: 6.00 Smoking status: Former smoker Tobacco type: cigarettes Smoking end date: 07/02/02 Alcohol intake: current Alcohol use details: 4/YEAR Substance use: never Substance use type: does not use Lack of Transportation: No Lack of Food: Never True Current Housing: I Have Housing Concerned About Future Housing: No Difficulty Paying Gas/Electric Bills: No Difficulty Paying for Meds: No Currently Unemployed: No Education: Master's Degree or Higher Difficulty w/ Childcare or Family Care: No Living arrangements: with family Gender identity (if verbalized by the patient): Female Spiritual care concerns: No Meds Home Medications and Allergies Home Medications Medication Instructions Recorded Confirmed Type No Home Medications 08/29/22 08/29/22 History Allergies Allergy/AdvReac Type Severity Reaction Status Date / Time Sulfa (Sulfonamide Allergy Severe destroys Verified 09/04/22 06:13 Antibiotics) wbc's amitriptyline AdvReac Unknown Nausea Verified 09/04/22 06:13 amoxicillin AdvReac Unknown Nausea Verified 09/04/22 06:13 oseltamivir AdvReac Unknown Nausea and Verified 09/04/22 06:13 Vomiting Vital Signs Vital Signs - 24 hr 09/04/22 06:23 Temperature 97.7 F Pulse Rate 70 Respiratory Rate 16 Blood Pressure 105/72 Pulse Oximetry 100 Oxygen Delivery Room Air Exam Const: General: healthy appearing and alert Orientation/consciousness: patient oriented x3 Resp: Effort & Inspection: normal respiratory effort GI: GI Palp: Yes Soft to palpation, No Tenderness to palpation present (GI) and No Palpable mass present : External Female Exam: normal external appearance Speculum Exam - Vagina: normal appearance of the vagina and normal vaginal discharge Speculum Exam - Cervix: normal appearance of the cervix Bimanual exam- vagina & uterus: uterine size normal and consistency normal Bimanual Exam- Adnexa, other: normal adnexae and No adnexal tenderness Neuro: General: patient oriented x3 Assessment and Plan Assessment and plan (1) Menorrhagia: Code(s): N92.0 - Excessive and frequent menstruation with regular cycle Status: Acute Assessment and Plan: plan to proceed with D&C hysteroscopy
--- NOTE | 2022-09-04 07:20 | WPDANESEPPF ---
Anes - Initial Pre Proc Eval Procedure: Operation Date: 09/04/22 07:30 Proposed Procedures p Hysteroscopy Dilation and Curettage - Yvonne Clarke MD Date/Time: 09/04/22 07:20 Surgeon: Yvonne Clarke MD Pre Op Diagnosis: menorrhagia Patient Data Age: 42 Gender: F Height: 1.6 m Weight: 63.6 kg Last Vital Signs Temp 97.7 F 09/04/22 06:23 Pulse 70 09/04/22 06:23 Resp 16 09/04/22 06:23 BP 105/72 09/04/22 06:23 Pulse Ox 100 09/04/22 06:23 O2 Del Method Room Air 09/04/22 06:23 Allergies Allergy/AdvReac Type Severity Reaction Status Date / Time Sulfa (Sulfonamide Allergy Severe destroys Verified 09/04/22 06:13 Antibiotics) wbc's amitriptyline AdvReac Unknown Nausea Verified 09/04/22 06:13 amoxicillin AdvReac Unknown Nausea Verified 09/04/22 06:13 oseltamivir AdvReac Unknown Nausea and Verified 09/04/22 06:13 Vomiting Home Medications Medication Instructions Recorded Confirmed Type No Home Medications 08/29/22 08/29/22 History Patient hx anesthesia problems: none Family hx anesthesia problems: none Results Review: All pre-operative results and documents have been reviewed as part of the pre-operative evaluation. [facility] Past Medical History Medical History (Updated 09/04/22 @ 07:07 by Yvonne Clarke MD) Anxiety Forceps delivery 2009 GERD (gastroesophageal reflux disease) History of hypothyroidism (normal spontaneous vaginal delivery) 2007 Recurrent kidney stones Surgical History Surgical History (Updated 09/04/22 @ 07:05 by Yvonne Clarke MD) H/O breast surgery Removal of axillary breast tissue H/O inguinal hernia repair H/O: 2004 Family History Family History Father Diabetes mellitus Heart disease Malignant neoplasm of prostate Social History Social History (Updated 08/23/22 @ 08:40 by Michelle Morris) Social History: caffeine-daily Smoking packs per day: 1 Smoking cigarettes per day: 20.0 Years smoked: 6 Smoking pack-years: 6.00 Smoking status: Former smoker Tobacco type: cigarettes Smoking end date: 07/02/02 Alcohol intake: current Alcohol use details: 4/YEAR Substance use: never Substance use type: does not use Lack of Transportation: No Lack of Food: Never True Current Housing: I Have Housing Concerned About Future Housing: No Difficulty Paying Gas/Electric Bills: No Difficulty Paying for Meds: No Currently Unemployed: No Education: Master's Degree or Higher Difficulty w/ Childcare or Family Care: No Living arrangements: with family Gender identity (if verbalized by the patient): Female Spiritual care concerns: No Anes - Eval Final PreProcedure Day of Procedure 09/04/22 07:20 Patient weight: normal Heart: regular rate and rhythm Lungs: clear to auscultation Airway: Mallampati scale class II Neurological: alert and oriented Last oral intake: >/= 8 hours ASA classification: II Emergent: no Anesthetic plan: proceed Anesthesia type and monitoring: general GIVS and standard monitoring Results Review: All pre-operative results and documents have been reviewed as part of the pre-operative evaluation. Informed Consent: The patient's anesthetic plan and its attendant risks and benefits were discussed with the patient/family/POA. Questions were solicited and answers provided to the satisfaction of the patient/family/POA.
[2022-09-04] MEDS: LIDOCAINE HCL 1% LOCAL INJ 20 ML VIAL 10 ML INFILTRATE (07:37)
[2022-09-04 07:45] VITALS: BP 82/45; PULSE 64; RESP 12; O2SAT 96
--- NOTE | 2022-09-04 07:46 | W.PM.PROC2 ---
Procedure Note - Detailed Date of Procedure 09/04/22 Pre-op Diagnosis menorrhagia Post-op Diagnosis Same Procedure Performed D&C hysteroscopy Surgeon Yvonne Clarke MD Anesthesia MAC and Local Findings uterus sounds to 10cm; normal-appearing endometrium with prominent vessels Description of Procedure The patient is taken to the operating room and placed under anesthesia in the dorsal lithotomy position. She was prepped and draped in the usual sterile fashion. [place] speculum is placed in the vagina and the cervix was grasped on the anterior lip with a tenaculum. The cervix is injected in each quadrant with lidocaine 1%. The uterus is sounded to 10cm. The diagnostic hysteroscope was placed with the above-stated findings. The hysteroscope is removed. A sharp curette is used to curette the endometrium until a good uterine cry was noted in all areas. All instruments are removed. Sponge, needle, and instrument counts are correct per the OR staff. Patient is awakened from the anesthesia and taken to recovery in stable condition. Estimated Blood Loss 5 Drains No Packing No Pathology Yes ( Endometrial curettings) Complications No immediate complications Condition Stable Disposition PACU
[2022-09-04 08:05] VITALS: BP 90/55; PULSE 70; RESP 14; O2SAT 100
[2022-09-04 08:30] VITALS: BP 109/80; PULSE 65; RESP 14
== END 2022-09-04 08:35 | disposition home or self-care (01) ==
PROVIDERS: PCP Internal Medicine; Visit Provider Obstetrics & Gynecology Gynecology
PROC: 0U5B8ZZ Destruction of Endometrium, Via Natural or Artificial Opening Endoscopic (ICD-10-PCS; CPT 58563; principal; 2022-09-04 07:30)
DX: N92.0 Excessive and frequent menstruation with regular cycle (principal); Z87.891 Personal history of nicotine dependence
CPT/HCPCS: 58558; 88305; A9270; J2250; J2704; J3010; J7120

== ENCOUNTER → 2022-09-22 11:18 | Outpatient (CLI) | payer OTHER, SELFPAY ==
--- NOTE | ~2022-09-22 | MM_ITS ---
EXAMINATION: MM screening clari BI w hoang HISTORY: Screening TECHNIQUE: Craniocaudal and mediolateral oblique 3-D tomosynthesis images were obtained and synthetic 2-D images were generated. CAD analysis was submitted and interpreted. COMPARISON: Comparison to multiple prior studies sequentially, with oldest reviewed study dated 11/2018. BREAST PARENCHYMAL COMPOSITION: The breasts are heterogeneously dense, which may obscure small masses . FINDINGS: There is no evidence of suspicious mass, calcification, or architectural distortion to sugg est malignancy in either breast. There has been no suspicious interval change. IMPRESSION: 1. No mammographic evidence of malignancy. 2. Recommend routine screening mammography in one year. BI-RADS Category 1: Negative Reviewed, dictated and finalized at location A.
== END ==
PROVIDERS: PCP Obstetrics & Gynecology Gynecology; Visit Provider Obstetrics & Gynecology Gynecology
DX: Z12.31 Encounter for screening mammogram for malignant neoplasm of breast (principal)
CPT/HCPCS: 77063; 77067

== ENCOUNTER 2022-10-16 00:30 | Day surgery (SDC) | payer OTHER, SELFPAY ==
[2022-10-10 14:27] VITALS: BMI 24.4
--- NOTE | 2022-10-10 14:49 | PC.NURSE ---
Report to the Outpatient Waiting Room, entrance under the green pavilion located off [facility], at 0630 on 10-16-22. Planned Procedure Time: 0830. Time changes happen often and if your time is changed the preop area will call you the afternoon before. - You and your visitor will be asked to self-screen and do not enter if you have any COVID symptoms. - A mask is optional within the hospital at this time. Patients may have clear liquids (water, carbonated beverages, clear teas, apple juice) until 3 hours prior to surgery with a maximum of 20 ounces. 0530 - No food from midnight until time of surgery - Infants may have breast milk until 4 hours before surgery, formula 6 hours prior to surgery. - Children will be allowed to drink immediately following surgery. If applicable, please bring a bottle or sippy cup to assist with drinking. Juice, water, soda, and popsicles are readily available. For infants on formula, please bring formula the day of surgery. Pacifiers are allowed. Take the following medications with a SIP of water the morning of surgery: None DO NOT STOP ANY OF YOUR OTHER PRESCRIPTION MEDICATIONS PRIOR TO SURGERY ?EXCEPT THE FOLLOWING Medications to discontinue per physician: N/A Please no make-up, nail tajik, hairspray, perfume, deodorant, or body powder the day of surgery. No jewelry (including any body piercings) or valuables the day of surgery, leave them at home. Please take a shower or bath the night before, or the morning of, surgery with an antibacterial soap. Wear comfortable, loose fitting clothing. Children are encouraged to wear pajamas. - Jewelry must be removed prior to entering the operating room. Rings and piercings that are not removed may be cut off. - The hospital will not accept responsibility for valuables. - Please leave all valuables, including medications, at home the day of surgery. If you are going home after surgery, a licensed lunch truck driver must drive you home. - NO public transportation without another adult if you receive anesthesia. - We recommend that an adult stay with you for 24 hours following discharge. - We also recommend that you do not drive, make important decision, drink alcoholic beverages, or take any drugs that were not prescribed by your health care provider for at least 24 hours after your discharge time. For Pediatric surgeries, we recommend two adults accompany the child home. Follow any additional instructions given to you from your surgeon. If you or anyone in your household have experienced Covid symptoms in the past week, please notify your surgeon or the nurse liaison at the phone number below for possible testing. Telephone instructions given to Tri Noble and asked if any additional questions and then verbalized understanding. Patient advised to call surgeon office or pre surgery nurse liaison [phone] if any additional questions.
[2022-10-16 06:33] VITALS: BP 104/67; PULSE 70; RESP 18; TEMP 36.7; O2SAT 100
[2022-10-16] MEDS: LACTATED RINGERS 1,000 ML 30 ML IV CONT (06:36)
[2022-10-16] MEDS: ACETAMINOPHEN 500 MG TABLET 1000 MG PO (06:45)
--- NOTE | 2022-10-16 07:12 | WPDANESEPPF ---
Anes - Initial Pre Proc Eval Procedure: Operation Date: 10/16/22 07:30 Proposed Procedures p Hysteroscopy, Winnie Endometrial Ablation - Yvonne Clarke MD Date/Time: 10/16/22 07:12 Surgeon: Yvonne Clarke MD Pre Op Diagnosis: menorrhagia Patient Data Age: 42 Gender: F Height: 1.6 m Weight: 62.9 kg Last Vital Signs Temp 36.7 C 10/16/22 06:33 Pulse 70 10/16/22 06:33 Resp 18 10/16/22 06:33 BP 104/67 10/16/22 06:33 Pulse Ox 100 10/16/22 06:33 O2 Del Method Room Air 10/16/22 06:33 Allergies Allergy/AdvReac Type Severity Reaction Status Date / Time Sulfa (Sulfonamide Allergy Severe destroys Verified 10/16/22 06:22 Antibiotics) wbc's oseltamivir AdvReac Mild Nausea and Verified 10/16/22 06:22 Vomiting Home Medications Medication Instructions Recorded Confirmed Type No Home Medications 10/10/22 10/16/22 History Patient hx anesthesia problems: none Family hx anesthesia problems: none Results Review: All pre-operative results and documents have been reviewed as part of the pre-operative evaluation. [facility] Past Medical History Medical History Anxiety Forceps delivery 2009 GERD (gastroesophageal reflux disease) History of hypothyroidism (normal spontaneous vaginal delivery) 2007 Recurrent kidney stones Surgical History Surgical History H/O breast surgery Removal of axillary breast tissue H/O inguinal hernia repair H/O: 2004 Family History Family History Father Diabetes mellitus Heart disease Malignant neoplasm of prostate Social History Social History (Updated 08/23/22 @ 08:40 by Michelle Morris) Social History: caffeine-daily Smoking packs per day: 1 Smoking cigarettes per day: 20.0 Years smoked: 6 Smoking pack-years: 6.00 Smoking status: Former smoker Tobacco type: cigarettes Second hand tobacco smoke exposure: No Smoking end date: 06/24/02 Alcohol intake: current Alcohol use details: Very rarely Substance use: never Substance use type: does not use Lack of Transportation: No Lack of Food: Never True Current Housing: I Have Housing Concerned About Future Housing: No Difficulty Paying Gas/Electric Bills: No Difficulty Paying for Meds: No Currently Unemployed: No Education: Master's Degree or Higher Difficulty w/ Childcare or Family Care: No Living arrangements: with family Gender identity (if verbalized by the patient): Female Spiritual care concerns: No Anes - Eval Final PreProcedure Day of Procedure 10/16/22 07:12 Patient weight: normal Heart: regular rate and rhythm Lungs: clear to auscultation and normal air movement Airway: Mallampati scale class II Neurological: alert and oriented Last oral intake: >/= 8 hours ASA classification: II Emergent: no Anesthetic plan: proceed Anesthesia type and monitoring: general GIVS and standard monitoring Results Review: All pre-operative results and documents have been reviewed as part of the pre-operative evaluation. Informed Consent: The patient's anesthetic plan and its attendant risks and benefits were discussed with the patient/family/POA. Questions were solicited and answers provided to the satisfaction of the patient/family/POA.
--- NOTE | 2022-10-16 07:22 | WPDHPUPDATE1 ---
History and Physical Update Update Date/Time: 10/16/22 07:22 History and Physical has been reviewed, including an updated exam of the patient. There are NO changes in the patient's condition. Risks, benefits, and alternatives have been discussed and questions answered. Patient agrees to proceed with procedure.
--- NOTE | 2022-10-16 07:22 | PM.HPGS ---
History of Present Illness History of Present Illness Consent: Risks, benefits, and alternatives have been discussed and questions answered. Patient agrees to proceed with procedure. Chief complaint: menorrhagia Narrative: Tri Noble is a 42 year old female with menorrhagia. Pelvic ultrasound performed just after a cycle ended revealed a thickened endometrium 1.3cm. Was recommended to proceed with D&C hysteroscopy which revealed benign findings. The patient has chosen to proceed with Winnie endometrial ablation. Risks of infection, bleeding, and perforation are discussed. Patient voices understanding and agrees to proceed. Review of Systems Review of Systems: not repeated day of surgery; patient states no changes in status [facility] Past Medical History Medical History (Updated 09/14/22 @ 14:56 by Elmira Rosales NP) Anxiety Forceps delivery 2009 GERD (gastroesophageal reflux disease) History of hypothyroidism (normal spontaneous vaginal delivery) 2007 Recurrent kidney stones Surgical History Surgical History (Updated 10/16/22 @ 07:27 by Yvonne Clarke MD) H/O breast surgery Removal of axillary breast tissue H/O inguinal hernia repair H/O: 2004 History of hysteroscopy 09/21 Family History Family History Father Diabetes mellitus Heart disease Malignant neoplasm of prostate Social History Social History (Updated 08/23/22 @ 08:40 by Michelle Morris) Social History: caffeine-daily Smoking packs per day: 1 Smoking cigarettes per day: 20.0 Years smoked: 6 Smoking pack-years: 6.00 Smoking status: Former smoker Tobacco type: cigarettes Second hand tobacco smoke exposure: No Smoking end date: 06/24/02 Alcohol intake: current Alcohol use details: Very rarely Substance use: never Substance use type: does not use Lack of Transportation: No Lack of Food: Never True Current Housing: I Have Housing Concerned About Future Housing: No Difficulty Paying Gas/Electric Bills: No Difficulty Paying for Meds: No Currently Unemployed: No Education: Master's Degree or Higher Difficulty w/ Childcare or Family Care: No Living arrangements: with family Gender identity (if verbalized by the patient): Female Spiritual care concerns: No Meds Home Medications and Allergies Home Medications Medication Instructions Recorded Confirmed Type No Home Medications 10/10/22 10/16/22 History Allergies Allergy/AdvReac Type Severity Reaction Status Date / Time Sulfa (Sulfonamide Allergy Severe destroys Verified 10/16/22 06:22 Antibiotics) wbc's oseltamivir AdvReac Mild Nausea and Verified 10/16/22 06:22 Vomiting Vital Signs Vital Signs - 24 hr 10/16/22 06:33 Temperature 98.0 F Pulse Rate 70 Respiratory Rate 18 Blood Pressure 104/67 Pulse Oximetry 100 Oxygen Delivery Room Air Exam Const: General: healthy appearing and alert Orientation/consciousness: patient oriented x3 Resp: Effort & Inspection: normal respiratory effort GI: GI Palp: Yes Soft to palpation, No Tenderness to palpation present (GI) and No Palpable mass present : External Female Exam: normal external appearance Speculum Exam - Vagina: normal appearance of the vagina and normal vaginal discharge Speculum Exam - Cervix: normal appearance of the cervix Bimanual exam- vagina & uterus: uterine size normal and consistency normal Bimanual Exam- Adnexa, other: normal adnexae and No adnexal tenderness Neuro: General: patient oriented x3 Assessment and Plan Assessment and plan (1) Menorrhagia: Code(s): N92.0 - Excessive and frequent menstruation with regular cycle Status: Acute Assessment and Plan: will proceed with Winnie endometrial ablation
[2022-10-16] MEDS: LIDOCAINE HCL 1% LOCAL INJ 20 ML VIAL 10 ML INFILTRATE (07:44)
[2022-10-16 07:57] VITALS: BP 95/54; PULSE 69; RESP 16; O2SAT 97
--- NOTE | 2022-10-16 07:57 | P.OP_ITS ---
Procedure Note - Detailed Date of Procedure 10/16/22 Pre-op Diagnosis menorrhagia Post-op Diagnosis Same Procedure Performed Winnie endometrial ablation Surgeon Yvonne Clarke MD Anesthesia MAC and Local Findings the uterus sounds to 10cm and appears grossly secretory Description of Procedure The patient was taken to the operating room and placed under anesthesia in the dorsal lithotomy position. She was prepped and draped in usual sterile fashion. [place] speculum was placed in the vagina and the cervix was grasped on the anterior lip with a tenaculum. The cervix is injected in each quadrant with 1% lidocaine. The uterus is sounded to 10cm. The hysteroscope was placed with the above-stated findings. The cervix is serially dilated to an 8 [place]. The Winnie device is opened and placed and set at 6cm. Cavity assessment passed on the 1st attempt. Treatment cycle lasted the full 2minutes. The device is removed and the hysteroscope replaced with good ablation effect noted. All instruments are removed. The patient is awakened from anesthesia and taken to recovery. Sponge, needle, and instrument counts are correct per the OR staff. Estimated Blood Loss 5 Drains No Packing No Pathology None sent Complications No immediate complications Condition Stable Disposition PACU
[2022-10-16 08:20] VITALS: BP 93/78; PULSE 69; RESP 16
[2022-10-16 08:35] VITALS: BP 94/64; PULSE 78; RESP 16
== END 2022-10-16 08:37 | disposition home or self-care (01) ==
PROVIDERS: PCP Internal Medicine; Visit Provider Obstetrics & Gynecology Gynecology
PROC: 0U5B8ZZ Destruction of Endometrium, Via Natural or Artificial Opening Endoscopic (ICD-10-PCS; CPT 58563; principal; 2022-10-16 07:30)
DX: N92.0 Excessive and frequent menstruation with regular cycle (principal); Z87.891 Personal history of nicotine dependence
CPT/HCPCS: 58563; A9270; J2250; J2704; J3010; J7120

== ENCOUNTER → 2022-11-01 12:50 | Outpatient (CLI) | payer OTHER, SELFPAY ==
--- NOTE | ~2022-11-01 | MR_ITS ---
EXAMINATION: MR cervical spine wo con DATE: 11/01/2022 13:19 INDICATION: Abnormal x-ray one month prior outside institution with decreased left hand motor functio n. Chronic neck pain radiating to the right arm with numbness in the right hand. TECHNIQUE: Magnetic resonance imaging (MRI) of the cervical spine was performed without intravenous c ontrast. Sequences included sagittal T2-weighted FSE, sagittal T2-weighted FS FSE, sagittal T1-weight ed FSE, axial MERGE and axial T2-weighted FSE. COMPARISON: None FINDINGS: Bone alignment is normal. Vertebral body heights are normal. Bone marrow signal intensity is normal . Mild disc height loss at C4-C5 and C5-C6. Cord signal intensity is normal. Cervical soft tissues ar e unremarkable. The following disc levels are specifically discussed: C2-C3: The disc does not extend beyond the endplate margin. There is no uncovertebral joint osteoarth ritis. There is mild left and severe right facet joint osteoarthritis. There is mild right neural for aminal stenosis. There is no central canal stenosis. C3-C4: Disc is bulging. There is mild right and moderate left uncovertebral joint osteoarthritis. The re is mild left and severe right facet joint osteoarthritis. There is mild right neural foraminal aaron nosis. There is mild central canal stenosis with minimal flattening the ventral surface of the cord. C4-C5: Disc is minimally bulging. There is mild bilateral uncovertebral joint osteoarthritis. There i s mild right and severe left facet joint osteoarthritis. There is mild left neural foraminal stenosis . There is no central canal stenosis. C5-C6: Disc is bulging. There is moderate bilateral uncovertebral joint osteoarthritis. There is mild right facet joint osteoarthritis. There is mild bilateral neural foraminal stenosis. There is mild c entral canal stenosis with mild intention of the ventral surface of the cord. C6-C7: Disc is bulging, eccentric to the right. There is mild bilateral uncovertebral joint osteoarth ritis. There is moderate right and mild left facet joint osteoarthritis. There is mild bilateral, rig ht greater than left. neural foraminal stenosis. There is mild central canal stenosis with mild derick ening the right ventral surface of the cord. C7-T1: The disc does not extend beyond the endplate margin. There is no uncovertebral joint osteoarth ritis. There is moderate bilateral facet joint osteoarthritis. There is mild left neural foraminal st enosis. There is no central canal stenosis. IMPRESSION: 1. Interval progression of still mild cervical spondylosis. Reviewed, dictated and finalized at location B.
== END ==
PROVIDERS: PCP Clinical Nurse Specialist; Visit Provider Clinical Nurse Specialist
DX: R91.8 Other nonspecific abnormal finding of lung field (principal); M47.812 Spondylosis without myelopathy or radiculopathy, cervical region
CPT/HCPCS: 72141

== ENCOUNTER 2023-01-05 08:04 | Emergency (ER) | payer OTHER, SELFPAY ==
[2023-01-05 08:17] VITALS: BP 103/82; PULSE 81; RESP 16; TEMP 36.9; O2SAT 100
--- NOTE | 2023-01-05 08:26 | ED.LOWEXIN ---
HPI - Extremity Injury (Lower) General Chief Complaint: Extremity Injury, Lower Stated Complaint: Injured right foot Time Seen by Provider: 01/05/23 08:26 Source: patient Mode of arrival: ambulatory Limitations: no limitations History of Present Illness HPI Narrative: 42-year-old female presents with complaint of pain, bruising and swelling to lateral aspect of right foot. Patient reports 2 days ago she rolled her right foot going down stairs. Did not fall completely to the ground. Walking with slight limp. States had a lot of pain and soreness last night, concerned for fracture. All systems reviewed and negative except as noted above. Related Data Home Medications Medication Instructions Recorded Confirmed dextroamphetamine-amphetamine ER PO 01/05/23 10 mg 24hr capsule,extend release (Adderall XR) ferrous sulfate 325 mg (65 mg 325 mg PO DAILY 01/05/23 01/05/23 iron) tablet Allergies Allergy/AdvReac Type Severity Reaction Status Date / Time Sulfa (Sulfonamide Allergy Severe destroys Verified 01/05/23 08:15 Antibiotics) wbc's oseltamivir AdvReac Mild Nausea and Verified 01/05/23 08:15 Vomiting Review of Systems Review of Systems: CONSTITUTIONAL: Denies fever, chills, or sweats. EYES: Denies visual changes, redness, or discharge. ENT: Denies rhinorrhea, congestion, sore throat, or otalgia. CARDIOVASCULAR: Denies chest pain, palpitations, or edema. RESPIRATORY: Denies cough or dyspnea. GASTROINTESTINAL: Denies abdominal pain, nausea, vomiting, or diarrhea. GENITOURINARY: Denies dysuria or hematuria. SKIN: Denies rash or itching. MUSCULOSKELETAL: Denies back pain, joint pain, or myalgia. Reports pain and swelling to right foot. NEUROLOGIC: Denies headache, numbness, or weakness. PSYCHIATRIC: Denies anxiety or depression. All other systems reviewed are negative, except as documented in HPI. [facility] Past Medical History Medical History Acute bacterial sinusitis Anxiety Forceps delivery 2009 GERD (gastroesophageal reflux disease) History of hypothyroidism (normal spontaneous vaginal delivery) 2007 Recurrent kidney stones Surgical History Surgical History H/O breast surgery Removal of axillary breast tissue H/O inguinal hernia repair H/O: 2004 History of hysteroscopy 09/21 Family History Family History Father Diabetes mellitus Heart disease Malignant neoplasm of prostate Social History Social History Social History: caffeine-daily Smoking packs per day: 1 Smoking cigarettes per day: 20.0 Years smoked: 6 Smoking pack-years: 6.00 Smoking status: Former smoker Tobacco type: cigarettes Second hand tobacco smoke exposure: No Smoking end date: 06/24/02 Alcohol intake: current Alcohol use details: Very rarely Substance use: never Substance use type: does not use Lack of Transportation: No Lack of Food: Never True Current Housing: I Have Housing Concerned About Future Housing: No Difficulty Paying Gas/Electric Bills: No Difficulty Paying for Meds: No Currently Unemployed: No Education: Master's Degree or Higher Difficulty w/ Childcare or Family Care: No Living arrangements: with family Gender identity (if verbalized by the patient): Female Spiritual care concerns: No Comments At time of signature, agree with nursing past medical, surgical, social and family history. There is no relevant family history pertinent to the presenting complaint. Exam Narrative: GENERAL: This is a well-nourished, well-developed patient, in no apparent distress. HEAD: normocephalic, atraumatic. EYES: PERRL. Sclera clear/white. Vision is grossly intact. EARS: External ears normal NOSE: External nose normal NECK:
== END 2023-01-05 08:54 | disposition home or self-care (01) ==
PROVIDERS: Emergency Provider Nurse Practitioner Family; PCP Internal Medicine
DX: S93.601A Unspecified sprain of right foot, initial encounter (principal); X50.9XXA Other and unspecified overexertion or strenuous movements or postures, initial encounter; K21.9 Gastro-esophageal reflux disease without esophagitis; E03.9 Hypothyroidism, unspecified
CPT/HCPCS: 73630; 99213; G0463

== ENCOUNTER 2023-06-22 15:43 | Emergency (ER) | payer OTHER, SELFPAY ==
[2023-06-22 16:03] VITALS: BP 102/80; PULSE 73; RESP 16; TEMP 37.1; O2SAT 100
[2023-06-22 16:10] VITALS: BP 102/80; PULSE 73; RESP 16; TEMP 37.1; O2SAT 100
--- NOTE | 2023-06-22 16:49 | ED.URI ---
HPI - URI/Sore Throat General Chief Complaint: Upper Respiratory Infection Stated Complaint: Chest Congestion, Headache, Fever, Stomach Problem Source: patient and RN notes reviewed Mode of arrival: ambulatory Limitations: no limitations History of Present Illness HPI Narrative: 42 y/o female presented for c/o fatigue, chest congestion, and pain across chest for 5 days. States the day before onset she had GI symptoms which resolved after 12 hours. Reports cough is mild with minimal nasal congestion. Taking dayquil nyquil and ibuprofen. Denies sob, wheezing or fever. MD elicited complaint: cough Related Data Home Medications Medication Instructions Recorded Confirmed ferrous sulfate 325 mg (65 mg 325 mg PO DAILY 01/05/23 06/22/23 iron) tablet B 12 1 cap PO DAILY 06/22/23 06/22/23 Nature Maid Mag/D3/Zinc 2 cap PO DAILY 06/22/23 06/22/23 Allergies Allergy/AdvReac Type Severity Reaction Status Date / Time Sulfa (Sulfonamide Allergy Severe destroys Verified 06/22/23 16:03 Antibiotics) wbc's oseltamivir AdvReac Mild Nausea and Verified 06/22/23 16:03 Vomiting Review of Systems Review of Systems: CONSTITUTIONAL: Endorses malaise, denies chills, sweats, fever EYES: Denies visual changes, redness, or discharge ENT: Reports rhinorrhea, congestion, denies otalgia, sore throat CARDIOVASCULAR: Denies chest pain, palpitations, edema RESPIRATORY: Reports cough, Denies dyspnea GASTROINTESTINAL: Denies abdominal pain, nausea, vomiting, diarrhea MUSCULOSKELETAL: Endorses myalgia NEUROLOGIC: Endorses headache PMFSH Past Medical History Medical History Acute bacterial sinusitis Anxiety Forceps delivery 2009 GERD (gastroesophageal reflux disease) History of hypothyroidism (normal spontaneous vaginal delivery) 2007 Recurrent kidney stones Surgical History Surgical History H/O breast surgery Removal of axillary breast tissue H/O inguinal hernia repair H/O: 2004 History of hysteroscopy 09/21 Family History Family History Father Diabetes mellitus Heart disease Malignant neoplasm of prostate Social History Social History Social History: caffeine-daily Smoking packs per day: 1 Smoking cigarettes per day: 20.0 Years smoked: 6 Smoking pack-years: 6.00 Smoking status: Former smoker Tobacco type: cigarettes Second hand tobacco smoke exposure: No Smoking end date: 06/24/02 Alcohol intake: current Alcohol use details: Very rarely Substance use: never Substance use type: does not use Lack of Transportation: No Lack of Food: Never True Current Housing: I Have Housing Concerned About Future Housing: No Difficulty Paying Gas/Electric Bills: No Difficulty Paying for Meds: No Currently Unemployed: No Education: Master's Degree or Higher Difficulty w/ Childcare or Family Care: No Living arrangements: with family Gender identity (if verbalized by the patient): Female Spiritual care concerns: No Exam Narrative: GENERAL: mildly Ill-appearing, nontoxic no acute distress. EYES: PERRLA, conjunctivae clear ENT: Mucous membranes moist. TMs pearly araujo with dull light reflex bilaterally; no tragal tenderness. Oropharynx erythematous without lesions or exudate, no drooling, no hoarseness, no trismus, uvula midline. CHEST: Clear to auscultation, breath sounds equal. HEART: Regular rate and rhythm. SKIN: Warm, dry, no rash. NEURO: Alert and oriented x3. PSYCH: Normal mood and affect Course Course Emergency Course: Patient is aware of diagnosis, understands and agrees to treatment plan. Anticipatory guidance given. Patient agrees to follow-up as directed and is aware of reasons to seek care at the emergency department.
== END 2023-06-22 16:57 | disposition home or self-care (01) ==
PROVIDERS: Emergency Provider Nurse Practitioner Family; PCP Family Medicine
DX: U07.1 COVID-19 (principal); E03.9 Hypothyroidism, unspecified; Z87.891 Personal history of nicotine dependence
CPT/HCPCS: 87081; 87426; 87804; 87880; 99213; C9803; G0463

== ENCOUNTER 2023-10-18 10:03 | Outpatient (CLI) | payer OTHER, SELFPAY ==
--- NOTE | ~2023-10-18 | MM_ITS ---
EXAMINATION: MM screening clari BI w hoang HISTORY: Screening TECHNIQUE: Craniocaudal and mediolateral oblique 3-D tomosynthesis images were obtained and synthetic 2-D images were generated. CAD analysis was submitted and interpreted. COMPARISON: Comparison to multiple prior studies sequentially, with oldest reviewed study dated 11/2018. BREAST PARENCHYMAL COMPOSITION: Dense: The breasts are heterogeneously dense, which may obscure small masses FINDINGS: There is a new focal asymmetry medially in the left breast on CC view. The right breast is stable without evidence for malignancy. IMPRESSION: 1. New left breast asymmetry. 2. Additional mammographic views and possible breast ultrasound are recommended. BI-RADS Category 0: Incomplete: Needs additional imaging evaluation. Reviewed, dictated and finalized at location B. IMPRESSION: 1. New left breast asymmetry. 2. Additional mammographic views and possible breast ultrasound are recommended . BI-RADS Category 0: Incomplete: Needs additional imaging evaluation.
== END 2023-10-18 10:04 ==
LOC: MICIMG 10:04
PROVIDERS: PCP Obstetrics & Gynecology Gynecology; Visit Provider Obstetrics & Gynecology Gynecology
DX: Z12.31 Encounter for screening mammogram for malignant neoplasm of breast (principal); R92.8 Other abnormal and inconclusive findings on diagnostic imaging of breast
CPT/HCPCS: 77063; 77067

== ENCOUNTER 2023-11-01 15:22 | Outpatient (CLI) | payer OTHER, SELFPAY ==
--- NOTE | ~2023-11-01 | CT_ITS ---
EXAMINATION: CT abdomen pelvis wo con DATE: 11/01/2023 15:41 INDICATION: Hematuria TECHNIQUE: Computed tomography (CT) of the abdomen and pelvis was performed without intravenous contr ast. The dose-length product was 347.55 mGy-cm. Automated exposure control and iterative reconstructi on technique were employed. COMPARISON: CT dated 07/04/2020. FINDINGS: Heart size normal. No significant pleural or pericardial abnormality. Lung bases unremarkab le. The spleen contains calcified granulomas. The pancreas and liver are unremarkable. Gallbladder is present. There are nonobstructing bilateral renal stones. No significant hydronephrosis. Uterus is e nlarged. Bladder is unremarkable. No abnormal pelvic masses or fluid collections. Small fat-containin g umbilical hernia. No acute osseous abnormality. No free air or free fluid. IMPRESSION: 1. Nonobstructing bilateral nephrolithiasis. Reviewed, dictated and finalized at location B.
== END 2023-11-01 15:23 ==
PROVIDERS: PCP Clinical Nurse Specialist; Visit Provider Nurse Practitioner
DX: R10.9 Unspecified abdominal pain (principal); R31.9 Hematuria, unspecified; N20.0 Calculus of kidney
CPT/HCPCS: 74176

== ENCOUNTER 2023-11-28 08:47 | Outpatient (CLI) | payer OTHER, SELFPAY ==
--- NOTE | ~2023-11-28 | MM_ITS ---
EXAMINATION: MM diagnostic clari LT w hoang HISTORY: Left breast asymmetry TECHNIQUE: Additional 3-D tomosynthesis images of inner left breast were performed and synthetic 2-D images were generated. CAD analysis was submitted and interpreted. COMPARISON: 10/18/2023, 09/22/2022, 08/25/2021 FINDINGS: Breast parenchyma is heterogeneously dense. The area of asymmetry at the inner, posterior l eft breast effaces with spot compression. No persistent mass lesion or distortion seen. No suspicious microcalcification. IMPRESSION: No mammographic evidence for malignancy. BI-RADS Category 1: Negative Reviewed, dictated and finalized at location .
== END 2023-11-28 08:48 ==
LOC: MICIMG 08:48
PROVIDERS: PCP Clinical Nurse Specialist; Visit Provider Obstetrics & Gynecology Gynecology
DX: R92.8 Other abnormal and inconclusive findings on diagnostic imaging of breast (principal)
CPT/HCPCS: 77061; 77065; G0279

== ENCOUNTER 2024-10-09 00:50 | Day surgery (SDC) | payer OTHER, SELFPAY ==
[2024-10-03 08:27] VITALS: BMI 24.5
--- OUTSIDE RECORDS SUMMARY | 2024-10-09 00:53 | XMS_ITS | Clinical Summary ---
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) Active ferrous fumarate 325 mg (106 mg iron) tablet Take 1 tablet (325 mg total) by mouth daily with breakfast Active Active Problems Problem Noted Date Diagnosed Date Positive antinuclear antibody 07/25/2016 Disorder of rotator cuff 07/24/2016 Surgical History Surgery Date Site/Laterality Comments SECTION 06/06/2005 x1 Medical History Medical History Date Comments Kidney problem Family History Medical History Relation Name Comments Diabetes Father Family history of diabetes mellitus - (Added by TW Conv) Hypertension Father Family history of hypertension - (Added by TW Conv) No Known Problems Mother Relation Name Status Comments Father Mother Social History Tobacco Use Types Packs/Day Years Used Date Smoking Tobacco: Former Tobacco Cessation:Counseling Given: Not Answered Personal Safety Answer Date Recorded Getting School Help Needed Not on file 08/30 Comments Unknown Sex and Gender Information Value Date Recorded Sex Assigned at Not on file Legal Sex Female 1:[address]IAN Gender Identity Not on file Sexual Orientation Not on file Obstetrics History Last Filed Vital Signs Vital Sign Reading Time Taken Comments Blood Pressure 107/72 01/09/2023 1:21 PM CDT Pulse 82 01/09/2023 1:21 PM CDT Temperature 36.7 C (98.1 F) 01/09/2023 1:21 PM CDT Respiratory Rate 26 12/03/2021 9:24 AM CDT Oxygen Saturation 99% 12/03/2021 9:24 AM CDT Inhaled Oxygen Concentration - - Weight 62.7 kg (138 lb 3.2 oz) 01/09/2023 1:21 P M CDT Height 160 cm (5' 3 ) 01/09/2023 1:21 PM CDT Body Mass Index 24.48 01/09/2023 1:21 PM CDT Plan of Treatment Health Maintenance Due Date Last Done Comments Breast Cancer Screening-Mammogram 1978 Cervical Cancer Screening 1978 Colon Cancer Screening-Colonoscopy 1978 Depression Screening 1978 Hepatitis C Screening 1978 DTaP/Tdap/Td Vaccine (1 - Tdap) 1989 Hepatitis B Screening 1996 Regular Well Visit/Exam 18-64 1996 Influenza Vaccine (#1) 2024 9, 04/26/2018 HPV Vaccines Aged Out No longer eligi ble based on patient's age to complete this topic Pneumococcal vaccine <65 Aged Out No longer eligible based on patient's age to complete this topic Insurance CHOICE PLUS [facility] CHOICE PLUS Care Teams Marketing Analytics Lead Relationship Specialty Start Date End Date Cee Rivera NP PCP - General Cardiovascular Disease 02/13/23
--- OUTSIDE RECORDS SUMMARY | 2024-10-09 00:53 | XMS_ITS | Clinical Summary ---
Author Organization [facility] Care Team Providers Care Exhibit Designer Name Role Phone Unavailable Primary Care Provider Unavailabl e Social History Tobacco Use Types Packs/Day Years Used Date Smoking Tobacco: Never Assessed Comments Unknown Sex and Gender Information Value Date Recorded Sex Assigned at Not on file Legal Sex Female 12:06 PM CDT Gender Identity Not on file Sexual Orientation Not on file Plan of Treatment Health Maintenance Due Date Last Done Comments Hepatitis C Virus (HCV) Screening 1978 TdaP Immunization 1978 Hepatitis B Immunization (1 of 3 - 19+ 3-dose series) 1997 Pap Smear 1999 Cervical Cancer Screening (CCS) 2008 HPV/Cotest 2008 Discussion re Starting/Frequency of Mammograms 2018 Colonoscopy 2023 Colorectal Cancer Screening 2023 Influenza Immunization (#1) 03/02/202404/01, 04/26/2018 SARS-COV-2 Immunization ( season) 2024 09/04/2020 Respiratory Syncytial Virus (RSV) Immunization (Adult) (1 - 1-dose 75+ series) 2053 Meningococcal Immunization (ACWY) Aged Out No longer eligible b ased on patient's age to complete this topic Pneumococcal Immunization Combined Aged Out No longer eligible b ased on patient's age to complete this topic Rotavirus Immunization Aged Out No lo nger eligible based on patient's age to complete this topic
--- OUTSIDE RECORDS SUMMARY | 2024-10-09 00:53 | XMS_ITS | Referral Summary ---
Author Organization [facility] Address [address] [place] [id number] Care Team Providers Care Salesperson Fashion Accessories Name Role Phone Cee Rivera NP Primary Care Provider [phone] Allergies Active Allergy Reactions Criticality Noted Date [...] antibody 07/25/2016 Disorder of rotator cuff 07/24/2016 Social History Tobacco Use Types Packs/Day Years Used Date Smoking Tobacco: Former Tobacco Cessation:Counseling Given: Not Answered Personal Safety Answer Date Recorded Getting School Help Needed Not on file 08/30 Comments Unknown Sex and Gender Information Value Date Recorded Sex Assigned at Not on file Legal Sex Female 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
[2024-10-09 09:05] VITALS: BP 126/94; PULSE 71; RESP 18; TEMP 36.4; O2SAT 100; BMI 24.5
[2024-10-09] MEDS: LACTATED RINGERS 1,000 ML 150 ML IV CONT (09:10)
--- NOTE | 2024-10-09 09:13 | P.PNAN_ITS ---
Anes - Initial Pre Proc Eval Procedure: Operation Date: 10/09/24 10:00 Proposed Procedures p Colonoscopy - Kt Edwards MD Date/Time: 10/09/24 09:13 Surgeon: Kt Edwards MD Pre Op Diagnosis: Diarrhea, unspecified Patient Data Age: 44 Gender: F Height: 1.6 m Weight: 63 kg Last Vital Signs Temp 97.6 F 10/09/24 09:05 Pulse 71 10/09/24 09:05 Resp 18 10/09/24 09:05 BP 126/94 H 10/09/24 09:05 Pulse Ox 100 10/09/24 09:05 O2 Del Method Room Air 10/09/24 09:05 Allergies Allergy/AdvReac Type Severity Reaction Status Date / Time Sulfa (Sulfonamide Allergy Severe destroys Verified 10/09/24 09:02 Antibiotics) wbc's oseltamivir AdvReac Mild Nausea and Verified 10/09/24 09:02 Vomiting Home Medications ?Medication ?Instructions ?Recorded ?Confirmed ?Type Nature Maid Mag/D3/Zinc 2 cap PO DAILY 06/22/23 10/09/24 History cholecalciferol (vitamin D3) 10 10 mcg PO DAILY 03/19/24 10/09/24 History mcg (400 unit) capsule estradiol 0.045 mg-levonorgestrel 1 patch transdermal WEEKLY 03/19/24 10/03/24 History 0.015 mg/24hr weekly transderm patch (Climara Pro) lutein 10 mg tablet 10 mg PO DAILY 03/19/24 10/09/24 History omega-3 fatty acids PO DAILY PRN heart health 03/19/24 09/12/24 History tretinoin 0.05 % topical cream 1 applic topical QHS 03/19/24 10/03/24 History progesterone micronized 100 mg 100 mg PO QHS 06/09/24 10/09/24 History capsule sertraline 50 mg tablet 50 mg PO DAILY #90 tabs 06/09/24 10/09/24 Rx cyclobenzaprine 5 mg tablet 5 mg PO TID PRN migraine headache 07/16/24 10/09/24 History ferrous sulfate 325 mg (65 mg 325 mg PO DAILY 07/16/24 10/09/24 History iron) tablet (Feosol) Patient hx anesthesia problems: none Family hx anesthesia problems: none Results Review: All pre-operative results and documents have been reviewed as part of the pre- operative evaluation. [facility] Past Medical History Medical History COVID-19 Iron deficiency anemia External hemorrhoids Acute bacterial sinusitis Forceps delivery 2009 (normal spontaneous vaginal delivery) 2008 History of hypothyroidism Right ureteral stone Anxiety Recurrent kidney stones GERD (gastroesophageal reflux disease) Dermatofibroma Surgical History Surgical History History of hysteroscopy 09/21 H/O: 2004 H/O breast surgery Removal of axillary breast tissue H/O inguinal hernia repair Family History Family History Father Diabetes mellitus Heart disease Malignant neoplasm of prostate Social History Social History Social History: caffeine-daily Smoking packs per day: 1 Smoking cigarettes per day: 20.0 Years smoked: 6 Smoking pack-years: 6.00 Smoking status: Former smoker Tobacco type: cigarettes Second hand tobacco smoke exposure: No Smoking end date: 06/24/02 Alcohol intake: current Alcohol use details: maybe once a month Substance use: never Substance use type: does not use Do You Feel Safe in your Home?: Yes Lack of Transportation: No Lack of Food: Never True Current Housing: I Have Housing Concerned About Future Housing: No Difficulty Paying Gas/Electric Bills: No Difficulty Paying for Meds: No Currently Unemployed: No Education: Master's Degree or Higher Difficulty w/ Childcare or Family Care: No Living arrangements: with family Gender identity (if verbalized by the patient): Female Spiritual care concerns: No Anes - Eval Final PreProcedure Day of Procedure 10/09/24 09:13 Patient weight: normal Heart: regular rate and rhythm Lungs: clear to auscultation Airway: Mallampati scale class II Neurological: alert and oriented Last oral intake: >/= 8 hours ASA classification: II Emergent: no Anesthetic plan: proceed Anesthesia type and monitoring: general GIVS and standard monitoring Results Review: All pre-operative results and documents have been reviewed as part of the pre- operative evaluation. Informed Consent: The patient's anesthetic plan and its attendant risks and benefits were discussed with the patient/family/POA. Questions were solicited and answers provided to the satisfaction of the patient/family/POA.
--- NOTE | 2024-10-09 09:38 | PM.HPGS ---
History of Present Illness History of Present Illness Consent: Risks, benefits, and alternatives have been discussed and questions answered. Patient agrees to proceed with procedure. Chief complaint: Diarrhea, unspecified Narrative: Tri Noble is a 44 year old female here for first colonoscopy, since July with explosive bowel movements Review of Systems Review of Systems: All systems reviewed & are unremarkable except as noted in HPI and below PMFSH Past Medical History Medical History COVID-19 Iron deficiency anemia External hemorrhoids Acute bacterial sinusitis Forceps delivery 2009 (normal spontaneous vaginal delivery) 2007 History of hypothyroidism Right ureteral stone Anxiety Recurrent kidney stones GERD (gastroesophageal reflux disease) Dermatofibroma Surgical History Surgical History History of hysteroscopy 09/21 H/O: 2004 H/O breast surgery Removal of axillary breast tissue H/O inguinal hernia repair Family History Family History Father Diabetes mellitus Heart disease Malignant neoplasm of prostate Social History Social History Social History: caffeine-daily Smoking packs per day: 1 Smoking cigarettes per day: 20.0 Years smoked: 6 Smoking pack-years: 6.00 Smoking status: Former smoker Tobacco type: cigarettes Second hand tobacco smoke exposure: No Smoking end date: 06/24/02 Alcohol intake: current Alcohol use details: maybe once a month Substance use: never Substance use type: does not use Do You Feel Safe in your Home?: Yes Lack of Transportation: No Lack of Food: Never True Current Housing: I Have Housing Concerned About Future Housing: No Difficulty Paying Gas/Electric Bills: No Difficulty Paying for Meds: No Currently Unemployed: No Education: Master's Degree or Higher Difficulty w/ Childcare or Family Care: No Living arrangements: with family Gender identity (if verbalized by the patient): Female Spiritual care concerns: No Meds Home Medications and Allergies Home Medications ?Medication ?Instructions ?Recorded ?Confirmed ?Type Nature Maid Mag/D3/Zinc 2 cap PO DAILY 06/22/23 10/09/24 History cholecalciferol (vitamin D3) 10 10 mcg PO DAILY 03/19/24 10/09/24 History mcg (400 unit) capsule estradiol 0.045 mg-levonorgestrel 1 patch transdermal WEEKLY 03/19/24 10/03/24 History 0.015 mg/24hr weekly transderm patch (Climara Pro) lutein 10 mg tablet 10 mg PO DAILY 03/19/24 10/09/24 History omega-3 fatty acids PO DAILY PRN heart health 03/19/24 09/12/24 History tretinoin 0.05 % topical cream 1 applic topical QHS 03/19/24 10/03/24 History progesterone micronized 100 mg 100 mg PO QHS 06/09/24 10/09/24 History capsule sertraline 50 mg tablet 50 mg PO DAILY #90 tabs 06/09/24 10/09/24 Rx cyclobenzaprine 5 mg tablet 5 mg PO TID PRN migraine headache 07/16/24 10/09/24 History ferrous sulfate 325 mg (65 mg 325 mg PO DAILY 07/16/24 10/09/24 History iron) tablet (Feosol) Allergies Allergy/AdvReac Type Severity Reaction Status Date / Time Sulfa (Sulfonamide Allergy Severe destroys Verified 10/09/24 09:02 Antibiotics) wbc's oseltamivir AdvReac Mild Nausea and Verified 10/09/24 09:02 Vomiting Vital Signs Vital Signs - 24 hr 10/09/24 09:05 Temperature 97.6 F Pulse Rate 71 Respiratory Rate 18 Blood Pressure 126/94 H Pulse Oximetry 100 Oxygen Delivery Room Air Exam Const: General: comfortable and no acute distress HENMT: Face/Nose/Sinus: Normal nares present Eyes: General: appearance normal, both eyes and all related structures Neck: Neck: no JVD Resp: Auscultation: clear to auscultation bilaterally Cardio: Rate: regular rate Rhythm: regular rhythm GI: Inspection: non-distended GI Palp: Yes Soft to palpation Skin: General skin exam: normal color Neuro: General: gait normal Speech: normal speech Extrem: General: normal to inspection Psych: Mental Status: mental status grossly normal Assessment and Plan Assessment and plan (1) Diarrhea: Qualifiers: Diarrhea type: unspecified type Qualified Code(s): R19.7 - Diarrhea, unspecified Code(s): R19.7 - Diarrhea, unspecified Status: Acute Assessment and Plan: colonoscopy, consider random colon bx
[2024-10-09 09:56] LABS: BEDSIDEPREGUCG Negative (Negative)
[2024-10-09 10:00] VITALS: BP 83/49; PULSE 60; RESP 14; O2SAT 100
[2024-10-09 10:10] VITALS: BP 96/52; PULSE 62; RESP 16; O2SAT 100
[2024-10-09 10:20] VITALS: BP 100/69; PULSE 66; RESP 16; O2SAT 100
== END 2024-10-09 10:30 | disposition home or self-care (01) ==
PROVIDERS: PCP Family Medicine; Referring Provider Student in an Organized Health Care Education/Training Program; Visit Provider Internal Medicine Gastroenterology
PROC: 0DJD8ZZ Inspection of Lower Intestinal Tract, Via Natural or Artificial Opening Endoscopic (ICD-10-PCS; CPT 45378; principal; 2024-10-09 10:00)
DX: K52.832 Lymphocytic colitis (principal); K63.5 Polyp of colon; K57.30 Diverticulosis of large intestine without perforation or abscess without bleeding; K64.8 Other hemorrhoids; Z87.891 Personal history of nicotine dependence
CPT/HCPCS: 45380; 88305; J2003; J2371; J2704; J7120

== ENCOUNTER 2025-02-17 20:45 | Emergency (ER) | payer OTHER, SELFPAY ==
--- OUTSIDE RECORDS SUMMARY | 2025-02-17 20:47 | XMS_ITS | Clinical Summary ---
Author Organization [facility] Care Team Providers Care Cracking Machine Operator Name Role Phone Unavailable Primary Care Provider [...] Cervical Cancer Screening (CCS) 2008 HPV/Cotest 2008 Cologuard 2023 Colonoscopy 2023 Colorectal Cancer Screening 2023 Immunochemical Fecal Occult Blood 2023 SARS-COV-2 Immunization ( season) 2024 09/04/2020 Influenza Immunization (#1) 03/02/202504/01, 04/26/2018 Respiratory Syncytial Virus (RSV) Immunization (Adult) (1 - 1-dose 75+ series) 2053 Human Papillomavirus (HPV) Immunization Aged Out No longer eligible b ased on patient's age to complete this topic Meningococcal Immunization (ACWY) Aged Out No longer eligible b ased on patient's age to complete this topic Pneumococcal Immunization Combined Aged Out No longer eligible b ased on patient's age to complete this topic Rotavirus Immunization Aged Out No lo nger eligible based on patient's age to complete this topic
[2025-02-17 21:11] VITALS: BP 123/76; PULSE 71; RESP 16; TEMP 36.6; O2SAT 98
--- OUTSIDE RECORDS SUMMARY | 2025-02-17 21:48 | XMS_ITS | Clinical Summary ---
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
--- NOTE | 2025-02-17 22:06 | ED.SKABFB ---
HPI - Skin/Abscess/Foreign Bdy General Chief complaint: Skin/Abscess/Foreign Body Stated complaint: spider bite Time Seen by Provider: 02/17/25 21:25 Source: patient Mode of arrival: ambulatory Limitations: no limitations History of Present Illness HPI narrative: Patient 44-year-old female who presents the ED with report of redness to her right forearm and elbow. 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 Noticed several areas of erythematous rash to her R forearm and medial elbow. Denies significant itching. Reports some discomfort r/t rash but does note she is dealing with tennis elbow in R elbow. Denies fevers. Denies knowingly being bit by anything. Related Data Home Medications ?Medication ?Instructions ?Recorded ?Confirmed ?Last Taken ?Type Nature Maid Mag/D3/Zinc 2 cap PO DAILY 06/22/23 12/09/24 10/08/24 History cholecalciferol (vitamin D3) 10 10 mcg PO DAILY 03/19/24 12/09/24 10/08/24 History mcg (400 unit) capsule lutein 10 mg tablet 10 mg PO DAILY 03/19/24 12/09/24 10/08/24 History omega-3 fatty acids PO DAILY PRN heart health 03/19/24 12/09/24 10/08/24 History cyclobenzaprine 5 mg tablet 5 mg PO TID PRN migraine headache 07/16/24 12/09/24 10/08/24 History ferrous sulfate 325 mg (65 mg 325 mg PO DAILY 07/16/24 12/09/24 10/03/24 History iron) tablet (Feosol) tretinoin 0.05 % topical cream 1 applic topical QHS PRN 10/27/24 12/09/24 Unknown History clotrimazole-betamethasone 1 applic topical 12/25/24 Unknown History %-0.05 % topical cream estradiol 0.01% (0.1 mg/gram) vaginal 12/25/24 Unknown History vaginal cream estradiol 0.1 mg/24 hr weekly topical 12/25/24 Unknown History transdermal patch progesterone micronized 200 mg mg PO 12/25/24 Unknown History capsule Allergies Allergy/AdvReac Type Severity Reaction Status Date / Time Sulfa (Sulfonamide Allergy Severe destroys Verified 02/17/25 21:14 Antibiotics) wbc's oseltamivir AdvReac Mild Nausea and Verified 02/17/25 21:14 Vomiting Review of Systems Review of Systems: All systems reviewed & are unremarkable except as noted in HPI. All systems reviewed & are unremarkable except as noted in HPI and below PMFSH Past Medical History Medical History Right elbow pain COVID-19 Iron deficiency anemia External hemorrhoids Acute bacterial sinusitis Forceps delivery 2009 (normal spontaneous vaginal delivery) 2008 History of hypothyroidism Right ureteral stone Anxiety Recurrent kidney stones GERD (gastroesophageal reflux disease) Dermatofibroma Surgical History Surgical History History of hysteroscopy 09/21 H/O: 2004 H/O breast surgery Removal of axillary breast tissue H/O inguinal hernia repair Family History Family History Father Diabetes mellitus Heart disease Malignant neoplasm of prostate Social History Social History Social History: caffeine-daily Smoking packs per day: 1 Smoking cigarettes per day: 20.0 Years smoked: 6 Smoking pack-years: 6.00 Smoking status: Former smoker Tobacco type: cigarettes Second hand tobacco smoke exposure: No Smoking end date: 06/24/02 Alcohol intake: current Alcohol use details: maybe once a month Substance use: never Substance use type: does not use Do You Feel Safe in your Home?: Yes Lack of Transportation: No Lack of Food: Never True Current Housing: I Have Housing Concerned About Future Housing: No Difficulty Paying Gas/Electric Bills: No Difficulty Paying for Meds: No Currently Unemployed: No Education: Master's Degree or Higher Difficulty w/ Childcare or Family Care: No Living arrangements: with family Gender identity (if verbalized by the patient): Female Spiritual care concerns: No Exam Narrative: GENERAL: Well appearing, well-nourished, non-toxic, in no acute distress. HEAD: Normocephalic, atraumatic. RESPIRATORY: Airway patent, respirations nonlabored. CARDIOVASCULAR: Regular rate and rhythm. Radial pulses strong and easily palpable. MUSCULOSKELETAL: Moves all extremities. No gross deformities. SKIN: Warm, dry, normal color. Scattered areas of erythematous macular slightly raised lesions to R forearm and R medial elbow. Slightly indurated. Minimally tender. Minimally warm. No fluctuance or areas of abscess. No drainage. Does not appear consistent w/ urticaria. NEURO: A&O X3. Speech clear. PSYCHIATRIC: Appropriate mood and affect. Normal interaction. Course Vital Signs Vital signs: Vital Signs Temperature 97.8 F 02/17/25 21:11 Pulse Rate 71 02/17/25 21:11 Respiratory Rate 16 02/17/25 21:11 Blood Pressure 123/76 02/17/25 21:11 Pulse Oximetry 98 02/17/25 21:11 Oxygen Delivery Room Air 02/17/25 21:11 Temperature 98.4 F 02/17/25 22:14 Pulse Rate 65 02/17/25 22:14 Respiratory Rate 18 02/17/25 22:14 Blood Pressure 110/69 02/17/25 22:14 Pulse Oximetry 100 02/17/25 22:14 Oxygen Delivery Room Air 02/17/25 21:11 MDM - Skin/Abscess/Foreign Bdy MDM Narrative Medical decision making narrative: Exam consistent with contact dermatitis versus cellulitis. Will cover for cellulitis with Keflex. Advised to continue to monitor symptoms, cool compresses, strict return precautions. Patient in agreement with plan. Discharged in stable condition. Medical Records Attestation: I reviewed the patient's medical records. Discharge Plan Discharge Clinical Impression: Contact dermatitis Qualifiers: Contact dermatitis type: irritant Contact dermatitis trigger: unspecified trigger Qualified Code(s): L24.9 - Irritant contact dermatitis, unspecified cause Cellulitis Qualifiers: Site of cellulitis: extremity Site of cellulitis of extremity: upper extremity Laterality: right Qualified Code(s): L03.113 - Cellulitis of right upper limb Patient Disposition: Home Condition: Stable Instructions: Antibiotic Form, Contact Dermatitis (ED), Cellulitis (ED) Additional Instructions: Take antibiotics as prescribed. Recommend cool compresses. Continue to monitor symptoms. Follow-up with primary care doctor for further evaluation if needed. Return to ED for worsening or severe redness/rash, pain/itching, fevers, numbness, or any other symptoms of concern. Patient Language: Mosotho Prescriptions: New cephalexin 500 mg capsule 500 mg PO Q6H 7 Days Qty: 28 0RF No Action Nature Maid Mag/D3/Zinc 2 cap PO DAILY lutein 10 mg tablet 10 mg PO DAILY Rx Instructions: give with meal/snack omega-3 fatty acids [Fish Oil] PO DAILY PRN (Reason: heart health) cholecalciferol (vitamin D3) 10 mcg (400 unit) capsule 10 mcg PO DAILY tretinoin 0.05 % cream 1 applic topical QHS PRN sertraline 50 mg tablet 50 mg PO DAILY Qty: 90 3RF cyclobenzaprine 5 mg tablet 5 mg PO TID PRN (Reason: migraine headache) ferrous sulfate [Feosol] 325 mg (65 mg iron) tablet 325 mg PO DAILY progesterone micronized 200 mg capsule PO estradiol 0.1 mg/24 hr patch weekly topical estradiol 0.01 % (0.1 mg/gram) cream vaginal clotrimazole-betamethasone 1-0.05 % cream topical diclofenac sodium 75 mg tablet,delayed release (DR/EC) 75 mg PO BID Qty: 60 1RF Follow-up/Referrals: Marielos Dominguez MD [Primary Care Provider, Family Practice] Time of Disposition: 22:10
[2025-02-17] MEDS: CEPHALEXIN 500 MG CAPSULE PO (22:13)
[2025-02-17 22:14] VITALS: BP 110/69; PULSE 65; RESP 18; TEMP 36.9; O2SAT 100
== END 2025-02-17 22:15 | disposition home or self-care (01) ==
PROVIDERS: Emergency Provider Physician Assistant; PCP Family Medicine
DX: L24.9 Irritant contact dermatitis, unspecified cause (principal); L03.113 Cellulitis of right upper limb; D64.9 Anemia, unspecified; E03.9 Hypothyroidism, unspecified; Z87.442 Personal history of urinary calculi; F41.9 Anxiety disorder, unspecified; K21.9 Gastro-esophageal reflux disease without esophagitis
CPT/HCPCS: 99283; A9270

== ENCOUNTER 2025-05-21 10:36 | Outpatient (CLI) | payer OTHER, SELFPAY ==
--- NOTE | ~2025-05-21 | XR_ITS ---
XR cervical spine 4-5V Indication: R arm/hand numbness, Adson's Positive, pain x 6 months Comparison: None Findings: Grade 1 anterolisthesis of C4 on C5. No fracture identified, no subluxation flexion and extension The disc heights are intact. Soft tissues unremarkable Impression: No acute abnormality. Reviewed, dictated and finalized at location P. LUBE OPERATOR Impression: No acute abnormality.
== END 2025-05-21 10:37 | disposition home or self-care (01) ==
LOC: GOSHIMG 10:37
PROVIDERS: PCP Family Medicine; Visit Provider Family Medicine
DX: M54.2 Cervicalgia (principal); M54.12 Radiculopathy, cervical region; M25.519 Pain in unspecified shoulder
CPT/HCPCS: 72050

== ENCOUNTER 2025-06-11 11:01 | Outpatient (CLI) | payer OTHER, SELFPAY ==
--- NOTE | ~2025-06-11 | XR_ITS ---
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 Findings: No acute fracture or malalignment. No significant degenerative changes. Soft tissues unremarkable. Impression: No acute fracture or malalignment. Reviewed, dictated and finalized at location P. [employer] ENGINEER Impression: No acute fracture or malalignment.
== END 2025-06-11 11:02 | disposition home or self-care (01) ==
PROVIDERS: PCP Family Medicine; Visit Provider Student in an Organized Health Care Education/Training Program
DX: M70.41 Prepatellar bursitis, right knee (principal)
CPT/HCPCS: 73562

== ENCOUNTER 2025-06-16 11:08 | Outpatient (CLI) | payer OTHER, SELFPAY ==
--- NOTE | ~2025-06-16 | MR_ITS ---
EXAMINATION: MR cervical spine wo con DATE: 06/16/2025 11:38 INDICATION: Right hand numbness TECHNIQUE: Magnetic resonance imaging (MRI) of the cervical spine was performed without intravenous contrast. Sequences included sagittal T2-weighted FSE, sagittal T2-weighted FS FSE, sagittal T1-weighted FSE, axial MERGE, and axial T2-weighted FSE. COMPARISON: November 01, 2022 FINDINGS: Degenerative changes present throughout the cervical spine involving disc spaces uncovertebral joints and pedicles. No acute or aggressive bony or soft tissue process seen. No discrete medullary cord lesions or gross myelopathic changes. Visualized portion of the posterior fossa unremarkable. Level specific findings as follows: C2-3: Mild posterior spondylosis with mild right-sided neural foraminal narrowing. No spinal canal stenosis or discrete disc protrusion. C3-4: More advanced broad-based disc bulging/posterior spondylosis with moderate to severe right-sided neural foraminal narrowing. Mild left-sided neural foraminal narrowing. No spinal canal stenosis or discrete disc protrusion. C4-5: Moderate left and mild right-sided neural foraminal narrowing. No spinal canal stenosis or discrete disc protrusion. C5-6: Moderately severe bilateral neural foraminal narrowing right worse than left. No spinal canal stenosis or discrete disc protrusion. C6-7: Moderate right and mild to moderate left-sided neural foraminal narrowing. No spinal canal stenosis or discrete disc protrusion. C7-T1: Minimal degenerative changes. IMPRESSION: 1. Multilevel degenerative changes involving discs, uncovertebral joints and pedicles with varying degrees of neural foraminal narrowing at essentially all levels. See level specific details as above. 2. No spinal canal stenosis or discrete disc protrusion. Cord signal within normal limits. Reviewed, dictated and finalized at location A. BILLING CLERK IMPRESSION: 1. Multilevel degenerative changes involving discs, uncovertebral joints and pe dicles with varying degrees of neural foraminal narrowing at essentially all le vels. See level specific details as above. 2. No spinal canal stenosis or discrete disc protrusion. Cord signal within nor mal limits.
== END 2025-06-16 11:09 | disposition home or self-care (01) ==
LOC: MICIMG 11:08
PROVIDERS: PCP Family Medicine; Visit Provider Family Medicine
DX: M50.11 Cervical disc disorder with radiculopathy, high cervical region (principal); M50.321 Other cervical disc degeneration at C4-C5 level; M50.322 Other cervical disc degeneration at C5-C6 level; M50.323 Other cervical disc degeneration at C6-C7 level; M25.519 Pain in unspecified shoulder
CPT/HCPCS: 72141